=== PATIENT | male | born 1950 | race Caucasian/White ===

== ENCOUNTER 2016-06-21 06:18 | Inpatient (IN) | payer MEDICARE, OTHER ==
[2016-06-21] VITALS (39 sets, daily range): BP systolic 84–152; BP diastolic 45–96
[~2016-06-21] VITALS: Ht 195.6 cm; Wt 128.9 kg
[~2016-06-21 06:18] MED LIST: CARV12.544; LISI10TA6
[2016-06-21] MEDS ORDERED: SODIUM CHLORIDE 0.9% 1,000 ML IV ONE (06:35)
[2016-06-21] MEDS ORDERED: AMIODARONE HCL (50 MG/ ML) 3 ML VIAL IV ONE (06:37)
[2016-06-21] MEDS ORDERED: AMIODARONE HCL 150 MG in D5W 5% 100 ML IV ONE (06:45)
[2016-06-21] MEDS ORDERED: MIDAZOLAM HCL 5 MG/ML-1ML VIAL IV ONE (06:45)
[2016-06-21] MEDS ORDERED: AMIODARONE HCL 900 MG in DEXTROSE 500 ML IV SCH (06:49)
[2016-06-21 07:37] LABS: Hemoglobin 15.7 g/dL (13.5-17.5); SUSPECT VIEW TRANSMISSION
[2016-06-21 07:39] LABS: Hematocrit 47.3 % (41.0-53.0); Mean Corpuscular Hemoglobin 32.5 pg (28.0-32.0); Mean Corpuscular Hgb Conc. 33.3 g/dL (32.0-36.0); Mean Corpuscular Volume 97.5 fL (80.0-100.0); Mean Platelet Volume 8.4 fL (7.4-10.4); Platelet Count (auto) 208 10^3/uL (140-450); Red Cell Distribution Width 13.5 % (11.6-16.0); White Blood Cell 22.3 10^3/uL (4.4-10.8)
[2016-06-21 07:58] LABS: Albumin 3.6 g/dL (3.4-5.0); BUN/Creatinine Ratio 16.8; Calcium 9.2 mg/dL (8.5-10.1); Magnesium 2.5 mg/dL (1.6-2.6); Potassium 5.4 mmol/L (3.5-5.1)
[2016-06-21 07:59] LABS: Metamyelocytes % 0; Myelocytes % 0; Promyelocytes % 0; Reactive Lymphocytes 0
[2016-06-21 08:01] LABS: Platelet Estimate Adequate
[2016-06-21 08:02] LABS: Giant Platelets Few
[2016-06-21 08:10] LABS: Partial Thromboplastin Time 35.6 sec (22.64-33.71)
[2016-06-21 08:11] LABS: INR 3.76 (0.9-1.15); Prothrombin Time 40.6 sec (9.37-12.3)
[2016-06-21 08:14] LABS: Bilirubin, Total 1.3 mg/dL (0.2-1.0); Total Protein 7.6 g/dL (6.4-8.2)
[2016-06-21 08:28] LABS: B-Type Natriuretic Peptide 1177.37 pg/mL (0-100); Temperature: 22.9 C (20.0-25.0)
[2016-06-21] MEDS ORDERED: SODIUM CHLORIDE 0.9% 1,000 ML IV SCH ×3 (08:53→10:35)
[2016-06-21] MEDS ORDERED: LORazepam 0.5 MG TAB PO PRN (09:00)
[2016-06-21] MEDS ORDERED: MORPHINE SULF INJ 2 MG/ML SYRINGE 1ML IV PRN (09:00)
[2016-06-21] MEDS ORDERED: NITROGLYCERIN 0.4 MG SL TAB SL PRN (09:00)
[2016-06-21] MEDS ORDERED: PROCHLORPERAZINE EDISYLATE 5 MG/ML 2ML VIAL IV PRN (09:00)
[2016-06-21] MEDS ORDERED: THIAMINE HCL 100 MG/ML 2ML VIAL IV ONE (09:00)
[2016-06-21] MEDS ORDERED: cefTRIAXone 1GM/50ML D5W 50 ML IV ONE (09:30)
[2016-06-21] MEDS ORDERED: ALBUTEROL SULF 2.5 MG/0.5ML(0.5%) NEB SOLN NEB PRN (09:30)
[2016-06-21 10:05] LABS: Urine Bilirubin Negative (Negative); Urine Color Yellow (Yellow); Urine Glucose Normal (Normal); Urine Hyaline Cast MANY /lpf (0 - 2); Urine Ketone Negative (Negative); Urine Mucus FEW (None Seen); Urine Nitrite Negative (Negative); Urine RBC 3 /hpf (0 - 3); Urine Squamous Epithelial Cell FEW /hpf (<5)
[2016-06-21 10:14] LABS: Urine Blood 2+ /uL (Negative)
[2016-06-21] MEDS: methylPREDNISolone SOD SUCC 40 MG/ML VL IV SCH ×2 (10:16→23:48)
[2016-06-21] MEDS: ASPirin 81 mg TAB PO SCH (10:16)
[2016-06-21] MEDS: CARVEDILOL 12.5 MG TAB PO SCH ×2 (10:16→23:48)
[2016-06-21] MEDS: FAMOTIDINE 20 MG TAB PO SCH ×2 (10:17→23:48)
[2016-06-21] MEDS: NITROGLYCERIN 0.2MG/HR TOPICAL PATCH TD SCH (10:17)
[2016-06-21 10:20] LABS: Lactic Acid w/Reflex 7.7 mmol/L (0.4-2.0)
[2016-06-21 10:24] LABS: REFLEX LACTIC ACID YES OR NO YES
[2016-06-21] MEDS: chlordiazePOXIDE HCL 5 MG CAP PO SCH ×3 (13:00→23:48)
[2016-06-21] MEDS ORDERED: TRAM50TA2 PO (13:42)
[2016-06-21] MEDS ORDERED: WARF5TAB71 PO (13:42)
[2016-06-21] MEDS ORDERED: DIGO0.1262 PO (13:42)
[2016-06-21] MEDS ORDERED: FUROSEMIDE 20 MG/2 ML VIAL IV ONE (13:45)
[2016-06-21] MEDS: PROPOFOL 100 ML IV SCH (14:20)
[2016-06-21] MEDS: fentaNYL Drip 2500mCg/250mlNS 250 ML IV SCH (14:20)
[2016-06-21] MEDS: MIDAZOLAM DRIP 100 mg/100mL NS 100 ML IV SCH (14:20)
[2016-06-21] MEDS ORDERED: ROCURONIUM 10MG/ML 10ML VIAL IV ONE (14:34)
[2016-06-21] MEDS ORDERED: ETOMIDATE (2MG/ML) 20ML VIAL IV ONE (14:35)
[2016-06-21] MEDS ORDERED: SUCCINYLCHOLINE CHLORIDE 20 MG/ML 10ML VIAL IV ONE (14:35)
[2016-06-21] MEDS: LORazepam 2MG/ML-1ML VIAL IV PRN (14:37)
[2016-06-21] MEDS ORDERED: fentaNYL Drip 2500mCg/250mlNS 250 ML IV ONE (14:45)
[2016-06-21] MEDS ORDERED: PROPOFOL 100 ML IV ONE (14:46)
[2016-06-21] MEDS ORDERED: MIDAZOLAM DRIP 100 mg/100mL NS 100 ML IV ONE (14:51)
[2016-06-21] MEDS ORDERED: HEPARIN DRIP/D5W 100UNITS/ML 250 ML IV SCH ×2 (17:46→21:54)
[2016-06-21] MEDS: AMIODARONE HCL 900 MG in DEXTROSE 500 ML IV SCH (19:00)
[2016-06-22] VITALS (97 sets, daily range): BP systolic 90–147; BP diastolic 40–85
[2016-06-22] MEDS ORDERED: AMIODARONE HCL (50 MG/ ML) 3 ML VIAL IV ONE (01:23)
[2016-06-22] MEDS ORDERED: AMIODARONE HCL 900 MG IV ONE (01:23)
[2016-06-22] MEDS: AMIODARONE HCL 900 MG in DEXTROSE 500 ML IV SCH (01:38)
[2016-06-22 03:47] LABS: Basophils # (auto) 0 uL; Basophils % (auto) 0.1 % (0.0-2.0); Eosinophils # (auto) 0 uL; Hematocrit 40.9 % (41.0-53.0); Hemoglobin 13.8 g/dL (13.5-17.5); Lymphocytes # (auto) 0.6 uL; Lymphocytes % (auto) 5.1 % (10.0-50.0); Mean Corpuscular Hemoglobin 32.3 pg (28.0-32.0); Mean Corpuscular Hgb Conc. 33.6 g/dL (32.0-36.0); Mean Corpuscular Volume 95.9 fL (80.0-100.0); Mean Platelet Volume 8.9 fL (7.4-10.4); Monocytes # (auto) 0.5 uL; Monocytes % (auto) 3.8 % (0.0-12.0); Neutrophils # (auto) 11.4 uL; Platelet Count (auto) 190 10^3/uL (140-450); Red Cell Distribution Width 13.3 % (11.6-16.0); White Blood Cell 12.5 10^3/uL (4.4-10.8)
[2016-06-22 03:55] LABS: Partial Thromboplastin Time 31.1 sec (22.64-33.71)
[2016-06-22 04:00] LABS: INR 2.47 (0.9-1.15); Prothrombin Time 26.7 sec (9.37-12.3)
[2016-06-22 04:14] LABS: Temperature: 21.2 C (20.0-25.0)
[2016-06-22 04:15] LABS: Albumin 3.1 g/dL (3.4-5.0); BUN/Creatinine Ratio 28.9; Calcium 8.2 mg/dL (8.5-10.1); Potassium 5.2 mmol/L (3.5-5.1)
[2016-06-22 04:17] LABS: Bilirubin, Total 0.9 mg/dL (0.2-1.0); Total Protein 6.6 g/dL (6.4-8.2)
[2016-06-22] MEDS ORDERED: HEPARIN DRIP/D5W 100UNITS/ML 250 ML IV SCH (05:00)
[2016-06-22] MEDS: chlordiazePOXIDE HCL 5 MG CAP PO SCH ×4 (06:23→21:48)
[2016-06-22] MEDS: THIAMINE HCL 100 MG/ML 2ML VIAL IV SCH (09:42)
[2016-06-22] MEDS: cefTRIAXone 1GM/50ML D5W 50 ML IV SCH (09:42)
[2016-06-22] MEDS: CARVEDILOL 12.5 MG TAB PO SCH ×2 (09:43→21:48)
[2016-06-22] MEDS: methylPREDNISolone SOD SUCC 40 MG/ML VL IV SCH ×2 (09:43→21:47)
[2016-06-22] MEDS: NITROGLYCERIN 0.2MG/HR TOPICAL PATCH TD SCH (09:43)
[2016-06-22] MEDS: ASPirin 81 mg TAB PO SCH (10:00)
[2016-06-22] MEDS: FAMOTIDINE 20 MG TAB PO SCH ×2 (10:00→21:48)
[2016-06-22] MEDS: SODIUM CHLORIDE 0.9% 1,000 ML IV SCH (11:00)
[2016-06-22 11:28] LABS: Basophils # (auto) 0 uL; Basophils % (auto) 0.2 % (0.0-2.0); Eosinophils # (auto) 0 uL; Hematocrit 42.3 % (41.0-53.0); Hemoglobin 13.9 g/dL (13.5-17.5); Lymphocytes # (auto) 0.5 uL; Lymphocytes % (auto) 4.1 % (10.0-50.0); Mean Corpuscular Hgb Conc. 32.8 g/dL (32.0-36.0); Mean Corpuscular Volume 97.4 fL (80.0-100.0); Mean Platelet Volume 8.6 fL (7.4-10.4); Monocytes # (auto) 0.4 uL; Monocytes % (auto) 3.8 % (0.0-12.0); Neutrophils # (auto) 10.8 uL; Neutrophils % (auto) 91.9 % (37.0-80.0); Platelet Count (auto) 195 10^3/uL (140-450); Red Cell Distribution Width 13.5 % (11.6-16.0); White Blood Cell 11.8 10^3/uL (4.4-10.8)
[2016-06-22 11:46] LABS: BUN/Creatinine Ratio 33.3; Bilirubin, Total 0.9 mg/dL (0.2-1.0); Calcium 8.4 mg/dL (8.5-10.1); Potassium 5.2 mmol/L (3.5-5.1); Total Protein 6.5 g/dL (6.4-8.2)
[2016-06-22] MEDS: fentaNYL Drip 2500mCg/250mlNS 250 ML IV SCH (14:53)
[2016-06-22] MEDS: PROPOFOL 100 ML IV SCH (16:27)
[2016-06-22] MEDS ORDERED: WARFARIN SODIUM 2.5 MG TAB PO ONE (17:00)
[2016-06-22] MEDS: MIDAZOLAM DRIP 100 mg/100mL NS 100 ML IV SCH (17:41)
[2016-06-23] VITALS (104 sets, daily range): BP systolic 107–173; BP diastolic 57–117
[2016-06-23] MEDS: SODIUM CHLORIDE 0.9% 1,000 ML IV SCH ×2 (02:00→09:07)
[2016-06-23 04:14] LABS: Basophils # (auto) 0 uL; Basophils % (auto) 0.1 % (0.0-2.0); Eosinophils # (auto) 0 uL; Eosinophils % (auto) 0.1 % (0.0-7.0); Hematocrit 43.3 % (41.0-53.0); Hemoglobin 14.5 g/dL (13.5-17.5); Lymphocytes # (auto) 0.5 uL; Lymphocytes % (auto) 4.3 % (10.0-50.0); Mean Corpuscular Hemoglobin 32.4 pg (28.0-32.0); Mean Corpuscular Hgb Conc. 33.4 g/dL (32.0-36.0); Mean Corpuscular Volume 97.1 fL (80.0-100.0); Mean Platelet Volume 8.5 fL (7.4-10.4); Monocytes # (auto) 0.5 uL; Monocytes % (auto) 4.6 % (0.0-12.0); Neutrophils # (auto) 10.1 uL; Neutrophils % (auto) 90.9 % (37.0-80.0); Platelet Count (auto) 215 10^3/uL (140-450); White Blood Cell 11.1 10^3/uL (4.4-10.8)
[2016-06-23 04:35] LABS: Partial Thromboplastin Time 26.8 sec (22.64-33.71)
[2016-06-23 04:39] LABS: BUN/Creatinine Ratio 36.3; Calcium 8.4 mg/dL (8.5-10.1); Potassium 4.8 mmol/L (3.5-5.1)
[2016-06-23 04:43] LABS: INR 1.57 (0.9-1.15)
[2016-06-23 04:46] LABS: Bilirubin, Total 0.8 mg/dL (0.2-1.0); Total Protein 6.7 g/dL (6.4-8.2)
[2016-06-23] MEDS: chlordiazePOXIDE HCL 5 MG CAP PO SCH ×4 (05:43→21:41)
[2016-06-23] MEDS: AMIODARONE HCL 900 MG in DEXTROSE 500 ML IV SCH ×3 (05:43→21:41)
[2016-06-23] MEDS: ASPirin 81 mg TAB PO SCH (08:57)
[2016-06-23] MEDS: NITROGLYCERIN 0.2MG/HR TOPICAL PATCH TD SCH (08:57)
[2016-06-23] MEDS: cefTRIAXone 1GM/50ML D5W 50 ML IV SCH (08:57)
[2016-06-23] MEDS: methylPREDNISolone SOD SUCC 40 MG/ML VL IV SCH ×2 (08:58→21:39)
[2016-06-23] MEDS: FAMOTIDINE 20 MG TAB PO SCH ×2 (08:58→21:39)
[2016-06-23] MEDS: CARVEDILOL 12.5 MG TAB PO SCH ×2 (08:58→21:39)
[2016-06-23] MEDS: THIAMINE HCL 100 MG/ML 2ML VIAL IV SCH (08:58)
[2016-06-23] MEDS: PROPOFOL 100 ML IV SCH (14:53)
[2016-06-23] MEDS: MIDAZOLAM DRIP 100 mg/100mL NS 100 ML IV SCH (14:53)
[2016-06-23] MEDS: fentaNYL Drip 2500mCg/250mlNS 250 ML IV SCH (14:53)
[2016-06-23] MEDS ORDERED: WARFARIN SODIUM 5 MG TAB PO ONE (17:00)
[2016-06-24] VITALS (80 sets, daily range): BP systolic 110–173; BP diastolic 53–115
[2016-06-24] MEDS: LORazepam 2MG/ML-1ML VIAL IV PRN ×3 (00:27→23:45)
[2016-06-24] MEDS: SODIUM CHLORIDE 0.9% 1,000 ML IV SCH (02:45)
[2016-06-24 03:42] LABS: Basophils # (auto) 0 uL; Basophils % (auto) 0.2 % (0.0-2.0); Eosinophils # (auto) 0 uL; Hematocrit 42.8 % (41.0-53.0); Lymphocytes # (auto) 0.4 uL; Lymphocytes % (auto) 3.8 % (10.0-50.0); Mean Corpuscular Hemoglobin 31.9 pg (28.0-32.0); Mean Corpuscular Hgb Conc. 32.7 g/dL (32.0-36.0); Mean Corpuscular Volume 97.5 fL (80.0-100.0); Mean Platelet Volume 8.1 fL (7.4-10.4); Monocytes # (auto) 0.6 uL; Monocytes % (auto) 6.2 % (0.0-12.0); Neutrophils # (auto) 9.1 uL; Neutrophils % (auto) 89.8 % (37.0-80.0); Platelet Count (auto) 215 10^3/uL (140-450); Red Cell Distribution Width 13.8 % (11.6-16.0); White Blood Cell 10.1 10^3/uL (4.4-10.8)
[2016-06-24 03:56] LABS: Partial Thromboplastin Time 24.8 sec (22.64-33.71)
[2016-06-24 03:58] LABS: BUN/Creatinine Ratio 36.4; Calcium 8.5 mg/dL (8.5-10.1); INR 1.46 (0.9-1.15); Potassium 4.7 mmol/L (3.5-5.1); Prothrombin Time 15.8 sec (9.37-12.3)
[2016-06-24] MEDS: MORPHINE SULF INJ 2 MG/ML SYRINGE 1ML IV PRN ×3 (04:29→22:10)
[2016-06-24] MEDS: chlordiazePOXIDE HCL 5 MG CAP PO SCH ×4 (05:30→21:37)
[2016-06-24] MEDS: methylPREDNISolone SOD SUCC 40 MG/ML VL IV SCH ×2 (08:55→21:33)
[2016-06-24] MEDS: cefTRIAXone 1GM/50ML D5W 50 ML IV SCH (08:55)
[2016-06-24] MEDS: THIAMINE HCL 100 MG/ML 2ML VIAL IV SCH (08:55)
[2016-06-24] MEDS: ASPirin 81 mg TAB PO SCH (08:55)
[2016-06-24] MEDS: CARVEDILOL 12.5 MG TAB PO SCH ×2 (08:56→21:34)
[2016-06-24] MEDS: FAMOTIDINE 20 MG TAB PO SCH ×2 (08:56→21:37)
[2016-06-24] MEDS: NITROGLYCERIN 0.2MG/HR TOPICAL PATCH TD SCH (08:57)
[2016-06-24] MEDS ORDERED: ENALAPRIL MALEATE 2.5 MG TAB PO ONE (11:15)
[2016-06-24] MEDS: ENOXAPARIN SOD 100 MG/1 ML SYRINGE SC SCH ×2 (11:43→21:37)
[2016-06-24] MEDS: DOXYCYCLINE HYC 100MG/250ML 250 ML IV SCH (13:51)
[2016-06-24] MEDS: MIDAZOLAM DRIP 100 mg/100mL NS 100 ML IV SCH (14:53)
[2016-06-24] MEDS: fentaNYL Drip 2500mCg/250mlNS 250 ML IV SCH (14:53)
[2016-06-24] MEDS: PROPOFOL 100 ML IV SCH (14:53)
[2016-06-24] MEDS ORDERED: WARFARIN SODIUM 5 MG TAB PO ONE (17:00)
[2016-06-25] VITALS (63 sets, daily range): BP systolic 88–184; BP diastolic 43–113
[2016-06-25] MEDS: chlordiazePOXIDE HCL 5 MG CAP PO SCH ×3 (00:20→13:00)
[2016-06-25] MEDS: DOXYCYCLINE HYC 100MG/250ML 250 ML IV SCH ×2 (02:24→14:19)
[2016-06-25] MEDS: AMIODARONE HCL 900 MG in DEXTROSE 500 ML IV SCH ×2 (02:47→19:40)
[2016-06-25 03:43] LABS: Basophils # (auto) 0 uL; Basophils % (auto) 0.2 % (0.0-2.0); Eosinophils # (auto) 0 uL; Eosinophils % (auto) 0.1 % (0.0-7.0); Hematocrit 44.6 % (41.0-53.0); Hemoglobin 14.7 g/dL (13.5-17.5); Lymphocytes # (auto) 0.4 uL; Lymphocytes % (auto) 3.6 % (10.0-50.0); Mean Corpuscular Hemoglobin 32.2 pg (28.0-32.0); Mean Corpuscular Volume 97.7 fL (80.0-100.0); Mean Platelet Volume 8.3 fL (7.4-10.4); Monocytes # (auto) 0.5 uL; Monocytes % (auto) 4.8 % (0.0-12.0); Neutrophils # (auto) 9.7 uL; Neutrophils % (auto) 91.3 % (37.0-80.0); Platelet Count (auto) 192 10^3/uL (140-450); Red Cell Distribution Width 13.2 % (11.6-16.0); White Blood Cell 10.6 10^3/uL (4.4-10.8)
[2016-06-25 03:58] LABS: Partial Thromboplastin Time 34.8 sec (22.64-33.71)
[2016-06-25 03:59] LABS: INR 2.23 (0.9-1.15); Prothrombin Time 24.1 sec (9.37-12.3)
[2016-06-25 04:16] LABS: Albumin 2.6 g/dL (3.4-5.0); BUN/Creatinine Ratio 34.4; Bilirubin, Total 1.4 mg/dL (0.2-1.0); Calcium 8.2 mg/dL (8.5-10.1); Magnesium 2.5 mg/dL (1.6-2.6); Potassium 4.3 mmol/L (3.5-5.1); Total Protein 6.4 g/dL (6.4-8.2)
[2016-06-25] MEDS: cefTRIAXone 1GM/50ML D5W 50 ML IV SCH (09:19)
[2016-06-25] MEDS: methylPREDNISolone SOD SUCC 40 MG/ML VL IV SCH (09:50)
[2016-06-25] MEDS: ASPirin 81 mg TAB PO SCH (09:51)
[2016-06-25] MEDS: CARVEDILOL 12.5 MG TAB PO SCH ×2 (09:51→22:00)
[2016-06-25] MEDS: THIAMINE HCL 100 MG/ML 2ML VIAL IV SCH (09:52)
[2016-06-25] MEDS: FAMOTIDINE 20 MG TAB PO SCH (09:52)
[2016-06-25] MEDS: NITROGLYCERIN 0.2MG/HR TOPICAL PATCH TD SCH (09:53)
[2016-06-25] MEDS ORDERED: ENALAPRIL MALEATE 2.5 MG TAB PO SCH (10:00)
[2016-06-25] MEDS ORDERED: FUROSEMIDE 40 MG/4 ML VIAL IV ONE (11:45)
[2016-06-25] MEDS ORDERED: ENALAPRIL MALEATE 2.5 MG TAB PO ONE (11:45)
[2016-06-25] MEDS ORDERED: GABAPENTIN 100 MG CAP PO ONE (15:15)
[2016-06-25] MEDS ORDERED: WARFARIN SODIUM 1 MG TAB PO ONE (17:00)
[2016-06-25] MEDS: MORPHINE SULF INJ 2 MG/ML SYRINGE 1ML IV PRN (20:18)
[2016-06-25] MEDS: LORazepam 2MG/ML-1ML VIAL IV PRN (20:19)
[2016-06-26] VITALS (72 sets, daily range): BP systolic 101–180; BP diastolic 53–112
[2016-06-26] MEDS: methylPREDNISolone SOD SUCC 40 MG/ML VL IV SCH ×3 (00:14→21:28)
[2016-06-26] MEDS: SODIUM CHLORIDE 0.9% 1,000 ML IV SCH ×2 (00:14→10:28)
[2016-06-26] MEDS: FAMOTIDINE 20 MG TAB PO SCH ×3 (00:15→21:47)
[2016-06-26] MEDS: GABAPENTIN 100 MG CAP PO SCH ×4 (00:15→21:31)
[2016-06-26] MEDS: MORPHINE SULF INJ 2 MG/ML SYRINGE 1ML IV PRN ×2 (01:34→23:48)
[2016-06-26] MEDS: LORazepam 2MG/ML-1ML VIAL IV PRN (01:34)
[2016-06-26] MEDS: DOXYCYCLINE HYC 100MG/250ML 250 ML IV SCH ×2 (01:39→13:38)
[2016-06-26 03:53] LABS: Partial Thromboplastin Time 31.4 sec (22.64-33.71)
[2016-06-26 04:04] LABS: INR 2.85 (0.9-1.15); Prothrombin Time 30.8 sec (9.37-12.3)
[2016-06-26 04:06] LABS: Albumin 2.6 g/dL (3.4-5.0); BUN/Creatinine Ratio 35.2; Bilirubin, Total 1.3 mg/dL (0.2-1.0); Calcium 8.4 mg/dL (8.5-10.1); Potassium 4.2 mmol/L (3.5-5.1); Total Protein 6.5 g/dL (6.4-8.2)
[2016-06-26] MEDS: cefTRIAXone 1GM/50ML D5W 50 ML IV SCH (09:35)
[2016-06-26] MEDS: THIAMINE HCL 100 MG/ML 2ML VIAL IV SCH (09:36)
[2016-06-26] MEDS: ASPirin 81 mg TAB PO SCH (09:36)
[2016-06-26] MEDS: CARVEDILOL 12.5 MG TAB PO SCH ×3 (10:00→23:46)
[2016-06-26] MEDS: NITROGLYCERIN 0.2MG/HR TOPICAL PATCH TD SCH (10:00)
[2016-06-26] MEDS ORDERED: ENALAPRIL MALEATE 2.5 MG TAB PO SCH (10:00)
[2016-06-26] MEDS: AMIODARONE HCL 900 MG in DEXTROSE 500 ML IV SCH (10:41)
[2016-06-26] MEDS: SOD CHL 0.45% 1,000 ML IV SCH (13:38)
[2016-06-26] MEDS ORDERED: ENALAPRIL MALEATE 10 MG TAB PO ONE (14:15)
[2016-06-27] VITALS (22 sets, daily range): BP systolic 121–159; BP diastolic 61–151
[2016-06-27] MEDS: AMIODARONE HCL 900 MG in DEXTROSE 500 ML IV SCH ×2 (01:42→14:50)
[2016-06-27] MEDS: DOXYCYCLINE HYC 100MG/250ML 250 ML IV SCH ×2 (02:00→13:58)
[2016-06-27 03:53] LABS: Partial Thromboplastin Time 30.5 sec (22.64-33.71)
[2016-06-27 03:55] LABS: INR 2.92 (0.9-1.15); Prothrombin Time 31.5 sec (9.37-12.3)
[2016-06-27 04:01] LABS: Albumin 2.6 g/dL (3.4-5.0); BUN/Creatinine Ratio 36.3; Bilirubin, Total 1.4 mg/dL (0.2-1.0); Calcium 8.4 mg/dL (8.5-10.1); Potassium 3.9 mmol/L (3.5-5.1); Total Protein 6.5 g/dL (6.4-8.2)
[2016-06-27] MEDS: GABAPENTIN 100 MG CAP PO SCH ×3 (06:10→21:40)
[2016-06-27] MEDS: SOD CHL 0.45% 1,000 ML IV SCH (06:30)
[2016-06-27] MEDS: ASPirin 81 mg TAB PO SCH (10:07)
[2016-06-27] MEDS: FAMOTIDINE 20 MG TAB PO SCH ×2 (10:07→21:40)
[2016-06-27] MEDS: cefTRIAXone 1GM/50ML D5W 50 ML IV SCH (10:08)
[2016-06-27] MEDS: ENALAPRIL MALEATE 10 MG TAB PO SCH (10:08)
[2016-06-27] MEDS: THIAMINE HCL 100 MG/ML 2ML VIAL IV SCH (10:23)
[2016-06-27] MEDS: NITROGLYCERIN 0.2MG/HR TOPICAL PATCH TD SCH (10:23)
[2016-06-27] MEDS: methylPREDNISolone SOD SUCC 40 MG/ML VL IV SCH ×2 (10:23→21:40)
[2016-06-27] MEDS: CARVEDILOL 12.5 MG TAB PO SCH (21:39)
[2016-06-27] MEDS: LORazepam 2MG/ML-1ML VIAL IV PRN (22:22)
[2016-06-28] VITALS: BP 93/62
[2016-06-28] MEDS: LORazepam 2MG/ML-1ML VIAL IV PRN ×2 (01:55→21:38)
[2016-06-28] MEDS: DOXYCYCLINE HYC 100MG/250ML 250 ML IV SCH ×2 (02:05→14:28)
[2016-06-28 03:59] VITALS: BP 129/69
[2016-06-28] MEDS: GABAPENTIN 100 MG CAP PO SCH ×2 (06:00→14:28)
[2016-06-28 06:14] LABS: Basophils # (auto) 0 uL; Eosinophils # (auto) 0 uL; Hematocrit 47.5 % (41.0-53.0); Hemoglobin 16.1 g/dL (13.5-17.5); Lymphocytes # (auto) 0.3 uL; Lymphocytes % (auto) 1.9 % (10.0-50.0); Mean Corpuscular Hemoglobin 32.6 pg (28.0-32.0); Mean Corpuscular Hgb Conc. 33.8 g/dL (32.0-36.0); Mean Corpuscular Volume 96.4 fL (80.0-100.0); Mean Platelet Volume 8.4 fL (7.4-10.4); Monocytes # (auto) 0.6 uL; Monocytes % (auto) 3.4 % (0.0-12.0); Neutrophils # (auto) 16.2 uL; Neutrophils % (auto) 94.7 % (37.0-80.0); Platelet Count (auto) 180 10^3/uL (140-450); Red Cell Distribution Width 13.1 % (11.6-16.0); White Blood Cell 17.1 10^3/uL (4.4-10.8)
[2016-06-28 06:25] LABS: Calcium 8.6 mg/dL (8.5-10.1); Potassium 4.1 mmol/L (3.5-5.1)
[2016-06-28 06:36] LABS: INR 3.03 (0.9-1.15); Prothrombin Time 32.7 sec (9.37-12.3)
[2016-06-28 06:39] LABS: BUN/Creatinine Ratio 39.5
[2016-06-28] MEDS: AMIODARONE HCL 900 MG in DEXTROSE 500 ML IV SCH ×2 (07:44→21:38)
[2016-06-28 07:48] VITALS: BP 149/92
[2016-06-28] MEDS: cefTRIAXone 1GM/50ML D5W 50 ML IV SCH (09:00)
[2016-06-28] MEDS: CARVEDILOL 12.5 MG TAB PO SCH ×2 (10:00→21:37)
[2016-06-28] MEDS: ENALAPRIL MALEATE 10 MG TAB PO SCH (10:00)
[2016-06-28] MEDS: methylPREDNISolone SOD SUCC 40 MG/ML VL IV SCH ×2 (11:31→21:36)
[2016-06-28] MEDS: THIAMINE HCL 100 MG/ML 2ML VIAL IV SCH (11:31)
[2016-06-28 12:00] VITALS: BP 101/55
[2016-06-28] MEDS ORDERED: MORPHINE SULF INJ 2 MG/ML SYRINGE 1ML IV PRN (13:00)
[2016-06-28] MEDS: FAMOTIDINE 20 MG TAB PO SCH ×2 (14:27→21:37)
[2016-06-28] MEDS: NITROGLYCERIN 0.2MG/HR TOPICAL PATCH TD SCH (14:27)
[2016-06-28] MEDS: ASPirin 81 mg TAB PO SCH (14:27)
[2016-06-28] MEDS ORDERED: LORazepam 0.5 MG TAB PO PRN (15:00)
[2016-06-28 16:00] VITALS: BP 132/55
[2016-06-28] MEDS ORDERED: PHYTONADIONE (VIT K)10 MG/ML 1ML VIAL IV ONE ×2 (18:00→18:30)
[2016-06-28 20:00] VITALS: BP 104/61
[2016-06-28 20:39] LABS: INR 2.29 (0.9-1.15); Prothrombin Time 24.7 sec (9.37-12.3)
[2016-06-28] MEDS: GABAPENTIN 300 MG CAP PO SCH (21:37)
[2016-06-29] VITALS (7 sets, daily range): BP systolic 90–129; BP diastolic 53–79
[2016-06-29] MEDS: DOXYCYCLINE HYC 100MG/250ML 250 ML IV SCH ×2 (01:03→14:00)
[2016-06-29] MEDS: GABAPENTIN 300 MG CAP PO SCH ×3 (06:18→21:52)
[2016-06-29 06:44] LABS: Basophils # (auto) 0.1 uL; Basophils % (auto) 0.3 % (0.0-2.0); Eosinophils # (auto) 0 uL; Hemoglobin 14.9 g/dL (13.5-17.5); Lymphocytes # (auto) 0.5 uL; Lymphocytes % (auto) 2.5 % (10.0-50.0); Mean Corpuscular Hemoglobin 32.2 pg (28.0-32.0); Mean Corpuscular Hgb Conc. 33.1 g/dL (32.0-36.0); Mean Corpuscular Volume 97.1 fL (80.0-100.0); Mean Platelet Volume 8.4 fL (7.4-10.4); Monocytes # (auto) 1.2 uL; Monocytes % (auto) 5.6 % (0.0-12.0); Neutrophils # (auto) 18.9 uL; Neutrophils % (auto) 91.6 % (37.0-80.0); Platelet Count (auto) 178 10^3/uL (140-450); Red Cell Distribution Width 12.8 % (11.6-16.0); White Blood Cell 20.6 10^3/uL (4.4-10.8)
[2016-06-29 07:01] LABS: INR 1.52 (0.9-1.15); Prothrombin Time 16.4 sec (9.37-12.3)
[2016-06-29 07:41] LABS: Albumin 2.2 g/dL (3.4-5.0); Bilirubin, Direct 0.8 mg/dL (0-0.2); Bilirubin, Total 1.8 mg/dL (0.2-1.0); Total Protein 5.5 g/dL (6.4-8.2)
[2016-06-29] MEDS: cefTRIAXone 1GM/50ML D5W 50 ML IV SCH (09:33)
[2016-06-29] MEDS: ASPirin 81 mg TAB PO SCH (10:21)
[2016-06-29] MEDS: FAMOTIDINE 20 MG TAB PO SCH ×2 (10:21→21:52)
[2016-06-29] MEDS: CARVEDILOL 12.5 MG TAB PO SCH ×2 (10:23→21:52)
[2016-06-29] MEDS: ENALAPRIL MALEATE 10 MG TAB PO SCH (10:23)
[2016-06-29] MEDS: NITROGLYCERIN 0.2MG/HR TOPICAL PATCH TD SCH (10:24)
[2016-06-29] MEDS: THIAMINE HCL 100 MG/ML 2ML VIAL IV SCH (10:24)
[2016-06-29] MEDS: methylPREDNISolone SOD SUCC 40 MG/ML VL IV SCH (10:24)
[2016-06-29] MEDS ORDERED: HYDROcodone-ACET 5/325MG TAB PO PRN (12:00)
[2016-06-29] MEDS: AMIODARONE HCL 900 MG in DEXTROSE 500 ML IV SCH (13:46)
[2016-06-29] MEDS: traMADol HCL 50 MG TAB PO PRN (18:19)
[2016-06-29] MEDS: LORazepam 2MG/ML-1ML VIAL IV PRN (21:54)
[2016-06-30] VITALS (11 sets, daily range): BP systolic 95–126; BP diastolic 61–90
[2016-06-30] MEDS: DOXYCYCLINE HYC 100MG/250ML 250 ML IV SCH ×2 (01:52→13:26)
[2016-06-30] MEDS: AMIODARONE HCL 900 MG in DEXTROSE 500 ML IV SCH (05:00)
[2016-06-30 05:56] LABS: Basophils # (auto) 0 uL; DEFINITIVE VIEW TRANSMISSION; Eosinophils # (auto) 0.1 uL; Eosinophils % (auto) 0.4 % (0.0-7.0); Hemoglobin 14.9 g/dL (13.5-17.5); Lymphocytes # (auto) 1.6 uL; Lymphocytes % (auto) 8.2 % (10.0-50.0); Mean Corpuscular Hemoglobin 32.3 pg (28.0-32.0); Mean Corpuscular Hgb Conc. 33.2 g/dL (32.0-36.0); Mean Corpuscular Volume 97.2 fL (80.0-100.0); Mean Platelet Volume 9.1 fL (7.4-10.4); Monocytes # (auto) 1.7 uL; Monocytes % (auto) 8.9 % (0.0-12.0); Neutrophils # (auto) 15.7 uL; Neutrophils % (auto) 82.5 % (37.0-80.0); Platelet Count (auto) 186 10^3/uL (140-450); Red Cell Distribution Width 13.1 % (11.6-16.0)
[2016-06-30] MEDS: GABAPENTIN 300 MG CAP PO SCH ×3 (06:00→22:07)
[2016-06-30 06:02] LABS: INR 1.23 (0.9-1.15); Prothrombin Time 13.3 sec (9.37-12.3)
[2016-06-30] MEDS: cefTRIAXone 1GM/50ML D5W 50 ML IV SCH (08:42)
[2016-06-30] MEDS: ASPirin 81 mg TAB PO SCH (09:44)
[2016-06-30] MEDS: FAMOTIDINE 20 MG TAB PO SCH ×2 (09:45→22:07)
[2016-06-30] MEDS: predniSONE 20 MG TAB PO SCH (09:45)
[2016-06-30] MEDS: ENALAPRIL MALEATE 10 MG TAB PO SCH (10:00)
[2016-06-30] MEDS: CARVEDILOL 12.5 MG TAB PO SCH ×2 (10:00→22:08)
[2016-06-30] MEDS: NITROGLYCERIN 0.2MG/HR TOPICAL PATCH TD SCH (10:02)
[2016-06-30] MEDS: THIAMINE HCL 100 MG/ML 2ML VIAL IV SCH (10:02)
[2016-06-30] MEDS ORDERED: IOHEXOL 350 MG/ML 100ML IJ ONE (10:53)
[2016-06-30] MEDS ORDERED: LIDOCAINE 2%HCL (LOCAL ANESTH.) INJ 20ML MDV ONE (10:53)
[2016-06-30] MEDS ORDERED: ANGIOMAX 250 MG VIAL IV ONE (12:04)
[2016-06-30] MEDS ORDERED: MIDAZOLAM HCL 1MG/1ML-2 ML VIAL ONE (12:05)
[2016-06-30] MEDS ORDERED: SODIUM CHL 0.9% 0 ML ONE (12:05)
[2016-06-30] MEDS ORDERED: fentaNYL CITRATE 100 MCG/2 ML VL ONE (12:05)
[2016-07-01] VITALS (7 sets, daily range): BP systolic 87–126; BP diastolic 47–71
[2016-07-01] MEDS: DOXYCYCLINE HYC 100MG/250ML 250 ML IV SCH (01:27)
[2016-07-01 06:02] LABS: Basophils # (auto) 0 uL; DEFINITIVE VIEW TRANSMISSION; Eosinophils # (auto) 0.2 uL; Eosinophils % (auto) 1.3 % (0.0-7.0); Hematocrit 44.5 % (41.0-53.0); Hemoglobin 14.6 g/dL (13.5-17.5); Lymphocytes # (auto) 1.5 uL; Lymphocytes % (auto) 11.9 % (10.0-50.0); Mean Corpuscular Hemoglobin 31.8 pg (28.0-32.0); Mean Corpuscular Hgb Conc. 32.7 g/dL (32.0-36.0); Mean Corpuscular Volume 97.2 fL (80.0-100.0); Mean Platelet Volume 8.8 fL (7.4-10.4); Monocytes # (auto) 1.6 uL; Monocytes % (auto) 12.8 % (0.0-12.0); Neutrophils # (auto) 9.3 uL; Platelet Count (auto) 201 10^3/uL (140-450); Red Cell Distribution Width 13.1 % (11.6-16.0); White Blood Cell 12.6 10^3/uL (4.4-10.8)
[2016-07-01] MEDS: GABAPENTIN 300 MG CAP PO SCH ×3 (06:05→21:47)
[2016-07-01 06:24] LABS: BUN/Creatinine Ratio 32.8; Bilirubin, Total 1.2 mg/dL (0.2-1.0); Magnesium 2.2 mg/dL (1.6-2.6); Potassium 3.9 mmol/L (3.5-5.1); Total Protein 5.2 g/dL (6.4-8.2)
[2016-07-01] MEDS: THIAMINE HCL 100 MG/ML 2ML VIAL IV SCH (09:41)
[2016-07-01] MEDS: predniSONE 20 MG TAB PO SCH (09:41)
[2016-07-01] MEDS: FAMOTIDINE 20 MG TAB PO SCH ×2 (09:41→21:47)
[2016-07-01] MEDS: cefTRIAXone 1GM/50ML D5W 50 ML IV SCH (09:41)
[2016-07-01] MEDS: ASPirin 81 mg TAB PO SCH (09:41)
[2016-07-01] MEDS: ENALAPRIL MALEATE 10 MG TAB PO SCH (09:50)
[2016-07-01] MEDS: CARVEDILOL 12.5 MG TAB PO SCH ×2 (09:51→21:47)
[2016-07-01] MEDS: NITROGLYCERIN 0.2MG/HR TOPICAL PATCH TD SCH (09:52)
[2016-07-01] MEDS: DOXYCYCLINE 100 MG TAB/CAP PO SCH ×2 (10:47→21:46)
[2016-07-01] MEDS ORDERED: IOHEXOL 300 MG/ML 100ML BOTTLE IJ ONE (12:06)
[2016-07-01] MEDS: traMADol HCL 50 MG TAB PO PRN ×2 (17:25→23:29)
[2016-07-02 05:00] VITALS: BP 116/69
[2016-07-02] MEDS: GABAPENTIN 300 MG CAP PO SCH ×3 (05:30→22:10)
[2016-07-02] MEDS: traMADol HCL 50 MG TAB PO PRN ×3 (05:30→18:32)
[2016-07-02 06:09] LABS: Basophils # (auto) 0 uL; Basophils % (auto) 0.1 % (0.0-2.0); Eosinophils # (auto) 0.1 uL; Hematocrit 45.6 % (41.0-53.0); Hemoglobin 14.8 g/dL (13.5-17.5); Lymphocytes # (auto) 1.9 uL; Lymphocytes % (auto) 13.2 % (10.0-50.0); Mean Corpuscular Hemoglobin 31.8 pg (28.0-32.0); Mean Corpuscular Hgb Conc. 32.5 g/dL (32.0-36.0); Mean Corpuscular Volume 97.9 fL (80.0-100.0); Mean Platelet Volume 9.2 fL (7.4-10.4); Monocytes # (auto) 1.6 uL; Monocytes % (auto) 11.2 % (0.0-12.0); Neutrophils # (auto) 10.6 uL; Neutrophils % (auto) 74.5 % (37.0-80.0); Platelet Count (auto) 236 10^3/uL (140-450); White Blood Cell 14.2 10^3/uL (4.4-10.8)
[2016-07-02 09:00] VITALS: BP 125/57
[2016-07-02] MEDS: predniSONE 20 MG TAB PO SCH (09:32)
[2016-07-02] MEDS: CARVEDILOL 12.5 MG TAB PO SCH ×2 (09:32→22:11)
[2016-07-02] MEDS: ASPirin 81 mg TAB PO SCH (09:32)
[2016-07-02] MEDS: DOXYCYCLINE 100 MG TAB/CAP PO SCH ×2 (09:32→22:11)
[2016-07-02] MEDS: FAMOTIDINE 20 MG TAB PO SCH ×2 (09:33→22:10)
[2016-07-02] MEDS: ENALAPRIL MALEATE 10 MG TAB PO SCH (09:33)
[2016-07-02] MEDS: THIAMINE HCL 100 MG/ML 2ML VIAL IV SCH (09:33)
[2016-07-02] MEDS ORDERED: [UNRECOGNIZED DRUG - OTHER] TOP SCH (12:00)
[2016-07-02 13:00] VITALS: BP 90/58
[2016-07-02] MEDS: HYDROCORTONE 1% TOPICAL CREAM 30 GM TUBE TOP SCH ×2 (14:35→22:11)
[2016-07-02 16:41] VITALS: BP 115/64
[2016-07-02 20:42] VITALS: BP 115/64
[2016-07-02 21:23] VITALS: BP 106/57
[2016-07-02] MEDS ORDERED: PNEUMOCOCCAL VACC POLYS 25 MCG/0.5 ML VIAL IM ONE (23:00)
[2016-07-03] MEDS: traMADol HCL 50 MG TAB PO PRN ×2 (04:54→14:34)
[2016-07-03] MEDS: GABAPENTIN 300 MG CAP PO SCH ×2 (04:54→14:00)
[2016-07-03] MEDS ORDERED: predniSONE 20 MG TAB PO SCH (10:00)
[2016-07-03] MEDS: DOXYCYCLINE 100 MG TAB/CAP PO SCH (10:34)
[2016-07-03] MEDS: ASPirin 81 mg TAB PO SCH (10:34)
[2016-07-03] MEDS: THIAMINE HCL 100 MG/ML 2ML VIAL IV SCH (10:34)
[2016-07-03] MEDS: FAMOTIDINE 20 MG TAB PO SCH (10:35)
[2016-07-03] MEDS: ENALAPRIL MALEATE 10 MG TAB PO SCH (10:35)
[2016-07-03] MEDS: HYDROCORTONE 1% TOPICAL CREAM 30 GM TUBE TOP SCH (10:36)
[2016-07-03] MEDS: CARVEDILOL 12.5 MG TAB PO SCH (10:36)
[2016-07-03] MEDS ORDERED: ENA10T PO (13:35)
[2016-07-03] MEDS ORDERED: APIX5TAB PO (13:35)
[2016-07-03] MEDS ORDERED: CAR125T PO (13:35)
[2016-07-03] MEDS ORDERED: ASPI81CH43 PO (13:35)
[2016-07-03] MEDS ORDERED: SACC250C PO (13:37)
[2016-07-03] MEDS ORDERED: DOX100T PO (13:37)
[2016-07-03] MEDS ORDERED: ASPirin 81 mg TAB PO ONE (13:45)
[2016-07-03] MEDS ORDERED: APIXABAN 5 MG TAB PO ONE (13:45)
[2016-07-03] MEDS ORDERED: ALBUTEROL SULF 2.5 MG/0.5ML(0.5%) NEB SOLN NEB PRN (13:45)
[2016-07-03] MEDS ORDERED: ATOR10TA PO (13:53)
[2016-07-03] MEDS ORDERED: ATORVASTATIN 20 MG TAB PO SCH ×2 (22:00)
[2016-07-03] MEDS ORDERED: FAMOTIDINE 20 MG TAB PO SCH (22:00)
[2016-07-03] MEDS ORDERED: APIXABAN 5 MG TAB PO SCH (22:00)
[2016-07-04] MEDS ORDERED: ASPirin 81 mg TAB PO SCH (10:00)
[2016-07-04] MEDS ORDERED: THIAMINE HCL 100 MG TAB PO SCH (10:00)
== END 2016-07-03 19:19 | DRG 870 ==
LOC: ER 06:18 → TELE 06:19 → ICU WEST 12:14 → DOU IN ICU 06-27 16:40 → TELE-WESTW 07-01 00:44
PROVIDERS: ADMIT Internal Medicine; ATTEND Internal Medicine
PROC: 5A1955Z Respiratory Ventilation, Greater than 96 Consecutive Hours (ICD-10-PCS; principal; 2016-06-21)
PROC: 0BH17EZ Insertion of Endotracheal Airway into Trachea, Via Natural or Artificial Opening (ICD-10-PCS; 2016-06-21)
PROC: 02HV33Z Insertion of Infusion Device into Superior Vena Cava, Percutaneous Approach (ICD-10-PCS; 2016-06-21)
PROC: B548ZZA Ultrasonography of Superior Vena Cava, Guidance (ICD-10-PCS; 2016-06-21)
PROC: 5A2204Z Restoration of Cardiac Rhythm, Single (ICD-10-PCS; 2016-06-21)
PROC: 5A2204Z Restoration of Cardiac Rhythm, Single (ICD-10-PCS; 2016-06-21)
PROC: 4A023N7 Measurement of Cardiac Sampling and Pressure, Left Heart, Percutaneous Approach (ICD-10-PCS; 2016-06-30)
PROC: B2111ZZ Fluoroscopy of Multiple Coronary Arteries using Low Osmolar Contrast (ICD-10-PCS; 2016-06-30)
PROC: 0GBG3ZX Excision of Left Thyroid Gland Lobe, Percutaneous Approach, Diagnostic (ICD-10-PCS; 2016-07-03)
DX: A41.9 Sepsis, unspecified organism (principal); I21.4 Non-ST elevation (NSTEMI) myocardial infarction; I50.43 Acute on chronic combined systolic (congestive) and diastolic (congestive) heart failure; J96.01 Acute respiratory failure with hypoxia; N17.0 Acute kidney failure with tubular necrosis; J69.0 Pneumonitis due to inhalation of food and vomit; K76.7 Hepatorenal syndrome; I47.2 Ventricular tachycardia; E87.1 Hypo-osmolality and hyponatremia; E44.1 Mild protein-calorie malnutrition; I47.1 Supraventricular tachycardia; I48.1 Persistent atrial fibrillation; M62.82 Rhabdomyolysis; D68.9 Coagulation defect, unspecified; I13.0 Hypertensive heart and chronic kidney disease with heart failure and stage 1 through stage 4 chronic kidney disease, or unspecified chronic kidney disease; I42.6 Alcoholic cardiomyopathy; I48.92 Unspecified atrial flutter; E03.9 Hypothyroidism, unspecified; E66.01 Morbid (severe) obesity due to excess calories; Z91.19 Patient's noncompliance with other medical treatment and regimen; F10.20 Alcohol dependence, uncomplicated; Z68.32 Body mass index [BMI] 32.0-32.9, adult; E87.5 Hyperkalemia; K70.9 Alcoholic liver disease, unspecified; L40.9 Psoriasis, unspecified; N18.9 Chronic kidney disease, unspecified; J02.9 Acute pharyngitis, unspecified; I25.5 Ischemic cardiomyopathy; E05.20 Thyrotoxicosis with toxic multinodular goiter without thyrotoxic crisis or storm; I48.0 Paroxysmal atrial fibrillation; T38.0X5A Adverse effect of glucocorticoids and synthetic analogues, initial encounter; Z79.01 Long term (current) use of anticoagulants; Z80.9 Family history of malignant neoplasm, unspecified; Z82.49 Family history of ischemic heart disease and other diseases of the circulatory system; Z86.711 Personal history of pulmonary embolism; Z91.14 Patient's other noncompliance with medication regimen; Z28.21 Immunization not carried out because of patient refusal
CPT/HCPCS: 36415; 36600; 51702; 70450; 70491; 71010; 76536; 76700; 76937; 76942; 78582; 80048; 80053; 80061; 80076; 80162; 81001; 82140; 82150; 82550; 82570; 82805; 83036; 83605; 83690; 83735; 83880; 84300; 84439; 84443; 84481; 84484; 85007; 85025; 85027; 85379; 85610; 85652; 85730; 86141; 87040; 87070; 87081; 87086; 87205; 92610; 92960; 93005; 93306; 93970; 94002; 94003; 94640; 96365; 96367; 96375; 97001; 97116; 97530; 99152; 99291; A4565; G0434; J0330; J0696; J2250; J2704; J3010; J3430; J3490; J7060

== ENCOUNTER 2019-07-02 15:01 | Inpatient (IN) | payer MEDICARE ==
[~2019-07-02] VITALS: Ht 185.4 cm; Wt 138.0 kg
[~2019-07-02 15:01] MED LIST changes: +AMIO200T4 PO; +APIX5TAB PO; +ASPI81CH43 PO; +ATOR10TA PO; +CAR125T PO; -CARV12.544; +DOX100T PO; +ENAL10TA12 PO; +GAB100C PO; +HYDR-4833 PO; -LISI10TA6
[2019-07-02] MEDS ORDERED: SODIUM CHLORIDE 0.9% 1,000 ML IVB ONE (15:14)
[2019-07-02 16:22] LABS: Basophils # (auto) 0 10 ^3/uL (0-0.2); Basophils % (auto) 0.3 % (0.0-2.0); Eosinophils # (auto) 0.1 10 ^3/uL (0-0.8); Monocytes # (auto) 0.6 10 ^3/uL (0-1.3); Neutrophils # (auto) 4.3 10 ^3/uL (1.6-8.6); Nucleated Red Blood Cells % 0.1 %; White Blood Cell 6.1 10^3/uL (4.4-10.8)
[2019-07-02 16:24] LABS: Eosinophils % (auto) 0.8 % (0.0-7.0); Hematocrit 49.9 % (41.0-53.0); Lymphocytes # (auto) 1.2 10 ^3/uL (0.4-5.4); Lymphocytes % (auto) 19.2 % (10.0-50.0); Mean Corpuscular Hemoglobin 36.8 pg (28.0-32.0); Mean Corpuscular Hgb Conc. 34.1 g/dL (32.0-36.0); Mean Corpuscular Volume 107.8 fL (80.0-100.0); Monocytes % (auto) 9.8 % (0.0-12.0); Neutrophils % (auto) 69.9 % (37.0-80.0); Platelet Count (auto) 187 10^3/uL (140-450); Red Blood Cells 4.63 10^6/uL (4.5-5.90); Red Cell Distribution Width 14.3 % (11.8-14.3)
[2019-07-02 16:38] LABS: Albumin 3.5 g/dL (3.4-5.0); BUN/Creatinine Ratio 6.7; INR 1.18 (0.9-1.15); Magnesium 2.8 mg/dL (1.6-2.6); Partial Thromboplastin Time 29.1 sec (23.64-32.05); Potassium 4.3 mmol/L (3.5-5.1)
[2019-07-02 16:43] LABS: Bilirubin, Total 1.2 mg/dL (0.2-1.0); Total Protein 7.7 g/dL (6.4-8.2)
[2019-07-02] MEDS ORDERED: NITROGLYCERIN 0.4 MG SL TAB SL PRN (17:15)
[2019-07-02] MEDS ORDERED: MORPHINE SULF INJ 2 MG/ML SYRINGE 1ML IV PRN ×2 (17:15)
[2019-07-02] MEDS ORDERED: ALUM & MAG HYDROX-SIMETH LIQ(MAALOX) 30 ML PO PRN (17:15)
[2019-07-02] MEDS ORDERED: ONDANSETRON HCL 4 MG/2 ML VIAL IV PRN (17:15)
[2019-07-02] MEDS ORDERED: METOCLOPRAMIDE HCL 5MG/ml INJ 2ml VIAL IV PRN (17:15)
[2019-07-02] MEDS ORDERED: DOCUSATE SOD 100 MG CAP PO PRN (17:15)
[2019-07-02] MEDS: SOD CHL 0.45% 1,000 ML IV SCH (19:11)
--- NOTE | 2019-07-02 21:08 | NUR ---
Telemetry admit from [facility] admitted to Telemetry unit. Patient oriented to RN, unit, room, bed, and unit policies regarding patient care and visiting hours. Patient now on continuous telemetry monitoring, tele box #60. Patient placed on bedside oxygen at 2lpm via NC, weighed by bed scale and encouraged to call if they need something. All questions and concerns addressed, patient verbalized understanding. Bed locked in lowest position and bed rails up x2. Call light within reach.
[2019-07-02] MEDS: LORazepam 0.5 MG TAB PO PRN (22:28)
[2019-07-02 22:35] VITALS: BP 137/98
[2019-07-02] MEDS ORDERED: ENOXAPARIN SOD 60 MG/0.6 ML SYRINGE SC ONE (22:45)
[2019-07-02] MEDS ORDERED: METH10TA6 PO (22:49)
[2019-07-02] MEDS ORDERED: DIGO0.12 PO (22:49)
[2019-07-02] MEDS ORDERED: WARF1TAB36 PO (22:49)
[2019-07-02] MEDS ORDERED: METO25TA5 PO (22:49)
[2019-07-02] MEDS ORDERED: TRAM50TA2 PO (22:49)
[2019-07-02] MEDS ORDERED: CLON0.5T3 PO (22:49)
[2019-07-02] MEDS ORDERED: clonazePAM 0.5 MG TAB PO PRN (23:30)
[2019-07-03] MEDS: TEMAZEPAM 15 MG CAP PO PRN (01:10)
[2019-07-03 01:16] LABS: Urine Bacteria NONE SEEN /hpf (None Seen); Urine Blood Negative /uL (Negative); Urine Mucus FEW (None Seen); Urine Specific Gravity 1.011 (1.001-1.035); Urine WBC 3 /hpf (0 - 3)
--- NOTE | 2019-07-03 01:30 | NUR ---
IV insertion IV access obtained, via clean sterile technique by inserting a 22 gauge catheter in the right hand after 1 attempt. IV secured properly. No trauma to site. Patient tolerated well. Will continue to monitor for changes.
[2019-07-03] MEDS: SOD CHL 0.45% 1,000 ML IV SCH ×3 (03:04→23:13)
[2019-07-03 05:12] VITALS: BP 109/71
[2019-07-03 06:22] LABS: Basophils # (auto) 0 10 ^3/uL (0-0.2); Eosinophils # (auto) 0.1 10 ^3/uL (0-0.8); Hemoglobin 16.3 g/dL (13.5-17.5); Lymphocytes # (auto) 1.1 10 ^3/uL (0.4-5.4); Red Cell Distribution Width 14.1 % (11.8-14.3); White Blood Cell 6.1 10^3/uL (4.4-10.8)
[2019-07-03 06:24] LABS: Basophils % (auto) 0.6 % (0.0-2.0); Eosinophils % (auto) 0.9 % (0.0-7.0); Hematocrit 47.1 % (41.0-53.0); Lymphocytes % (auto) 18.3 % (10.0-50.0); Mean Corpuscular Hemoglobin 37.3 pg (28.0-32.0); Mean Corpuscular Hgb Conc. 34.7 g/dL (32.0-36.0); Mean Corpuscular Volume 107.5 fL (80.0-100.0); Monocytes # (auto) 0.5 10 ^3/uL (0-1.3); Neutrophils # (auto) 4.4 10 ^3/uL (1.6-8.6); Neutrophils % (auto) 72.2 % (37.0-80.0); Nucleated Red Blood Cells % 0.3 %; Platelet Count (auto) 176 10^3/uL (140-450); Red Blood Cells 4.38 10^6/uL (4.5-5.90)
[2019-07-03] MEDS: FUROSEMIDE 20 MG/2 ML VIAL IV SCH ×2 (06:25→18:00)
[2019-07-03 06:33] LABS: Albumin 3.2 g/dL (3.4-5.0); Calcium 8.7 mg/dL (8.5-10.1); Magnesium 2.5 mg/dL (1.6-2.6); Potassium 4.5 mmol/L (3.5-5.1)
[2019-07-03 06:39] LABS: BUN/Creatinine Ratio 6.9; Bilirubin, Total 1.4 mg/dL (0.2-1.0); Phosphorus 2.6 mg/dL (2.5-4.90); Total Protein 6.9 g/dL (6.4-8.2)
--- NOTE | 2019-07-03 07:30 | NUR ---
Opening Shift note Assumed care of patient from NOC RN. Patient is AOx4, no signs and symptoms of distress, sob, or pain noted. Bed is in lowest locked position, side rails up x2, and call light is within reach. Updated patient on plan of care, patient verbalized understanding. I will continue to monitor q1hr and PRN.
[2019-07-03 08:30] VITALS: BP 127/86
[2019-07-03] MEDS ORDERED: ENALAPRIL MALEATE 10 MG TAB PO SCH (10:00)
[2019-07-03] MEDS ORDERED: METOPROLOL TARTRATE 25 MG TAB PO SCH (10:00)
[2019-07-03] MEDS: ASPirin 81 mg TAB PO SCH (11:40)
[2019-07-03] MEDS: AMIODARONE HCL 200 MG TAB PO SCH ×2 (11:41→21:56)
[2019-07-03] MEDS: CARVEDILOL 12.5 MG TAB PO SCH ×2 (11:42→21:58)
[2019-07-03] MEDS: APIXABAN 5 MG TAB PO SCH ×2 (11:42→21:58)
[2019-07-03] MEDS: DIGOXIN 0.125 MG TAB PO SCH (11:43)
[2019-07-03] MEDS: methIMAzole 5 MG TAB PO SCH (11:44)
--- NOTE | 2019-07-03 11:50 | NUR ---
Physician Rounding Dr. Tom at bedside. Updated him on patient status. Per MD patient will have D-dimer lab drawn and if it comes back high to notify him, as well as have repeat thyroid lab draws. I will follow thorough with MD orders.
--- NOTE | 2019-07-03 12:30 | NUR ---
Physician Rounding at bedside. Updated him on patients status. Per MD patient is to have an ECHO done and have an ablation on Friday or Friday. I will follow through with MD orders.
[2019-07-03 13:03] VITALS: BP 108/70
--- NOTE | 2019-07-03 13:07 | NUR ---
Patients VS B/P is 108/70, hr 70 bpm, o2 saturation at 99% on 2 L nasal cannula. Patient is AOx4 no s/s of distress noted. I will continue to monitor Q1HR and PRN.
--- NOTE | 2019-07-03 13:17 | NUR ---
b/p Assessment Patients B/P is 80/52, HR 70 bpm, o2 saturation at 99% on 2L nasal cannula. I will reassess and continue to monitor Q1HR and PRN.
--- NOTE | 2019-07-03 15:10 | NUR ---
BP Reassessment. VS are BP of 72/43, HR 71 bpm, O2 saturation at 100% on 2 L on nasal cannula.
--- NOTE | 2019-07-03 15:15 | NUR ---
notified MD regarding low B/P Updated MD Tom about patients low B/P of 72/43. Per MD discontinue Vasotec and Lopressor, administer 500ml bolus of NS and notify MD Cohn. I will follow through with MD orders.
[2019-07-03] MEDS ORDERED: SODIUM CHLORIDE 0.9% 500 ML IV ONE (15:30)
[2019-07-03 17:00] VITALS: BP 90/58
--- NOTE | 2019-07-03 18:05 | NUR ---
B/P Reassessment. Patient is receiving 500ml bolus of normal saline. His BP is 80/55, HR 2bpm and the patient is asymptomatic.
--- NOTE | 2019-07-03 18:15 | NUR ---
called MD Left message for Dr. Cohn about patient receiving a 500ml bolus of NS, and regarding low BP. Awaiting call back.
--- NOTE | 2019-07-03 18:24 | NUR ---
Received call back Dr. Cohn called back, updated him on low B/P of 80/55 after 500ml bolus, updated him regarding elevated D-dimer level. Per MD give 3mcg/kg/min of dobutamine for B/P and continue with treatment with Eliquis.
--- NOTE | 2019-07-03 19:30 | NUR ---
Opening Shift Note Assumed care of patient, awake and alert. No S/S of distress/SOB or pain. Instructed on POC and to call for assist PRN, will continue to monitor for changes Q1hr and PRN. Bed locked in lowest position and bed rails up x2. Call light within reach.
--- NOTE | 2019-07-03 19:35 | NUR ---
end of shift note endorsed care of patient to NOC NISA Anthony. No s/s of distress noted at this time.
[2019-07-03] MEDS: DOBUTamine 1000MCG/ML 250 ML IV SCH (20:19)
[2019-07-03] MEDS: GABAPENTIN 100 MG CAP PO SCH (21:57)
[2019-07-03] MEDS: LORazepam 0.5 MG TAB PO PRN (21:59)
[2019-07-03] MEDS: ATORVASTATIN 20 MG TAB PO SCH (21:59)
[2019-07-03 22:00] VITALS: BP 138/76
--- NOTE | 2019-07-04 01:09 | NUR ---
IV insertion IV access obtained, via clean sterile technique by inserting a 22 gauge catheter in the right forearm after 1 attempt. IV secured properly. No trauma to site. Patient tolerated well. Will continue to monitor.
[2019-07-04 05:00] VITALS: BP 97/52
[2019-07-04] MEDS: FUROSEMIDE 20 MG/2 ML VIAL IV SCH ×2 (06:00→18:00)
--- NOTE | 2019-07-04 07:30 | NUR ---
Opening shift note care of patient assumed from NOC NISA Anthony. Patient is AOx4 no s/s of distress noted. Updated patient on plan of care and they verbalized understanding. Bed is in lowest locked position and call light is within reach. I will continue to monitor Q1hr and PRN.
[2019-07-04 09:00] VITALS: BP 107/53
[2019-07-04] MEDS: CARVEDILOL 12.5 MG TAB PO SCH ×2 (10:00→21:43)
[2019-07-04] MEDS ORDERED: LEVOTHYROXINE SODIUM 50 MCG TAB PO ONE (10:00)
[2019-07-04] MEDS: SOD CHL 0.45% 1,000 ML IV SCH ×3 (10:44→22:11)
[2019-07-04] MEDS: DIGOXIN 0.125 MG TAB PO SCH (10:47)
[2019-07-04] MEDS: ASPirin 81 mg TAB PO SCH (10:47)
[2019-07-04] MEDS: APIXABAN 5 MG TAB PO SCH ×2 (10:47→21:43)
[2019-07-04] MEDS: methIMAzole 5 MG TAB PO SCH (10:48)
[2019-07-04] MEDS: AMIODARONE HCL 200 MG TAB PO SCH ×2 (10:49→21:42)
[2019-07-04] MEDS: DOBUTamine 1000MCG/ML 250 ML IV SCH ×3 (10:50→21:42)
--- NOTE | 2019-07-04 11:19 | NUR ---
physician ghanshyaming Dr. Negro arauz. updated him on patient status. new ordered received i will follow through with orders.
--- NOTE | 2019-07-04 12:30 | NUR ---
Mcclelland catheter insertion Patient assessed and determined to be in need of mcclelland catheter. Order obtained from MD Tmo. Patient educated on catheter and reason for insertion. All questions answered. Mcclelland catheter 14 guage Cook Islander inserted with clean sterile technique. Patient tolerated well.
[2019-07-04 12:58] VITALS: BP 89/57
[2019-07-04 17:22] VITALS: BP 114/58
--- NOTE | 2019-07-04 19:15 | NUR ---
End of shift note care of patient endorsed to NOC NISA Kunz. No s/s of distress noted at this time.
--- NOTE | 2019-07-04 19:30 | NUR ---
Opening Shift Note Assumed care of patient, AOx4. Fall and safety precautions in place. No S/S of distress/SOB or pain. Call light within reach and able to use. Instructed on POC and to call for assist PRN, patient verbalized understanding and in agreement. Will continue to monitor for changes Q1hr and PRN.
[2019-07-04] MEDS: ATORVASTATIN 20 MG TAB PO SCH (21:43)
[2019-07-04] MEDS: GABAPENTIN 100 MG CAP PO SCH (21:43)
[2019-07-04] MEDS: traMADol HCL 50 MG TAB PO PRN (21:44)
[2019-07-04 22:00] VITALS: BP 121/62
--- NOTE | 2019-07-04 22:00 | NUR ---
TEMP Patient's oral temp is 99.5 F. Patient has multiple blankets on at this time. Cooling measures initiated. Patient educated on need for cooling measures, patient verbalized understanding and in agreement. Will continue to monitor.
[2019-07-04] MEDS: TEMAZEPAM 15 MG CAP PO PRN (22:58)
--- NOTE | 2019-07-04 23:00 | NUR ---
TEMP RECHECK Patient's oral temperature is now 98.8 F. Will continue to monitor.
--- NOTE | 2019-07-05 | NUR ---
NPO Patient NPO status. Patient educated on indication, patient verbalized understanding and in agreement. Will continue to monitor.
[2019-07-05 05:00] VITALS: BP 104/52
--- NOTE | 2019-07-05 05:20 | NUR ---
[facility] Paged for Temp Patient's oral temp is 99.6 F. [facility] paged to update on patient status. Awaiting call back. Will continue to monitor.
--- NOTE | 2019-07-05 05:22 | NUR ---
Call back from [facility] Received call back from [facility]. Updated on patient status. New order received (see new orders). Will carry out. Will continue to monitor patient.
[2019-07-05] MEDS ORDERED: ACETAMINOPHEN 325 MG TAB PO PRN (05:30)
[2019-07-05] MEDS: FUROSEMIDE 20 MG/2 ML VIAL IV SCH ×2 (05:50→17:31)
--- NOTE | 2019-07-05 07:03 | NUR ---
BP Check Checked patient's blood pressure d/t patient stating that he did not feel well and felt slightly dizzy. Blood pressure is 84/47 mm Hg. Rechecked patient's blood pressure and persists to be low. [facility] paged. Awaiting call back.
--- NOTE | 2019-07-05 07:07 | NUR ---
Received call-back fro [facility] Reeived call back rfom [facility]. Updated on patient status. Received new order for fluid bolus 1 liter NS. Then to recheck blood pressure after one hour. Will endorse to day shift RN.
--- NOTE | 2019-07-05 07:11 | NUR ---
[facility] Paged [facility] paged to clarify order due to patient's PMH of CHF. Awaiting call back. Will hold off on order for now. Will continue to monitor.
[2019-07-05] MEDS ORDERED: SODIUM CHLORIDE 0.9% 1,000 ML IV ONE (07:15)
--- NOTE | 2019-07-05 07:22 | NUR ---
Opening Shift Note Assumed care of patient, awake and alert X4. No S/S of distress/SOB or pain. Instructed on POC and to call for assist PRN, will continue to monitor for changes Q1hr and PRN.
--- NOTE | 2019-07-05 07:35 | NUR ---
PAGED DR. HANSON SPOKE TO DR. HANSON AT THIS TIME. UPDATED ON PATIENT'S BLOOD PRESSURE 84/47 MM HG AND ORDER RECEIVED FROM [facility] TO ADMINISTER 1L OF NS WHICH IS BEING HELD DUE TO FURTHER CLARIFICATION IN REGARDS TO PATIENT'S PMH OF CHF. MD HANSON STATES NOT TO ADMINISTER THE 1L NS BOLUS WHICH HAS BEEN HELD AT THIS TIME. ORDER RECEIVED FROM MD HANSON TO RATHER ADMINSITER 500ML BOLUS OF NS ONE TIME, READ BACK AND VERIFIED (SEE ORDERS). MD WOULD LIKE TO PROCEED/CONTINUE TO SCHEDULED PROCEDURE THIS AM. ADDITIONALLY, SPOKE TO VISUAL BASIC .NET DEVELOPER EAR MOLD LABORATORY TECHNICIAN WHO IS AWAITING PATIENT. NOTIFIED DIRECTOR OF FRONT OFFICE THAT PATIENT WILL BE SENT DOWN ONCE FLUID BOLUS IS HUNG. RN VERBALIZED UNDERSTANDING AND IN AGREEMENT. CARE ENDORSED TO DAY SHIFT RN.
--- NOTE | 2019-07-05 07:42 | NUR ---
500 ML BOLUS HUNG AND RUNNING TO THE LEFT FOREARM IV Addendum: 07/05/19 at 0846 by LAUREANO SUERO RN RN IV TO THE RIGHT FOREAM AND RIGHT HAND
[2019-07-05] MEDS ORDERED: SODIUM CHLORIDE 0.9% 500 ML IV ONE (07:45)
--- NOTE | 2019-07-05 07:58 | NUR ---
IV REASSESSMENT LEFT HAND 22G IV LEAKING LEFT FOREARM 22G POSSIBLE INFILTRATION. WILL CALL DOWN TO VALVE GRINDER AND UPDATE Addendum: 07/05/19 at 0828 by LAUREANO SUERO RN RN IV TO THE RIGHT HAND AND RIGHT FOREARM
--- NOTE | 2019-07-05 08:03 | NUR ---
skin assessment pt's bilateral groin area including genital area showing signs of maceration. warm wet towel used to clean yeast between skin folds before shaving bilateral groin for procedure. pt tolerated well.
--- NOTE | 2019-07-05 08:03 | NUR ---
Recieved pt to orthodontic laboratory technician. Pt presented to orthodontic laboratory technician altered and confused. pt does not answer questions appropriately, answers, "I don't know" to simple questions. Also randomly answers, "it's 4 years old.." to question re: "who's the president?" Pt's initial BP on arrival noted to be 87/59. Both periph IVs, 22g RFA and 22g R hand are infiltrated with fluids running to the RFA. Both IVs d/c'd. New IV started to LFA, 20g; fluid bolus resumed to new PIV. Reviewed labs and Sodium noted to be 127 with last lab drawn on the . MD Cohn notified by phone.
--- NOTE | 2019-07-05 08:06 | NUR ---
CALLED LEAD SOFTWARE ENGINEER RE: NO 20G IV AND IV TO LEFT HAND LEAKING AND POSSIBLE INFILTRATION TO THE LEFT FOREARM. ACCORDING TO EMMETT "JUST GO AHEAD AND BRING HIM DOWN. Addendum: 07/05/19 at 0827 by LAUREANO SUERO RN RN IV TO THE RIGHT HAND AND RIGHT FOREARM
--- NOTE | 2019-07-05 08:15 | NUR ---
PT BROUGHT DOWN TO DISPLAYER FOR PROCEDURE
[2019-07-05] MEDS ORDERED: LIDOCAINE 2%HCL (LOCAL ANESTH.) INJ 20ML MDV ONE (08:22)
--- NOTE | 2019-07-05 08:32 | NUR ---
improved B/P sys B/P 94/65
--- NOTE | 2019-07-05 08:53 | NUR ---
Spoke to Dr Cohn by phone made aware of pt's status (labs and mentation), attempts to reach pt's son for consent.
[2019-07-05 09:00] VITALS: BP 87/49
--- NOTE | 2019-07-05 09:07 | NUR ---
procedure aborted Received phone order from MD to abort procedure for reasons (see previous notes)
--- NOTE | 2019-07-05 09:09 | NUR ---
phone report endorsed to primary RN Nina
--- NOTE | 2019-07-05 09:13 | NUR ---
RECEIVED REPORT FROM RN IN ORACLE REPORTS DEVELOPER PER RN "PT IS GOING TO BE BROUGHT BACK UP TO THE FLOOR, THERE WERE A FEW ISSUES WITH THE PATIENT AND IT WE HAVE DECIDED TO WAIT TO DO THE PROCEDURE"
[2019-07-05] MEDS ORDERED: LEVOTHYROXINE SODIUM 50 MCG TAB PO SCH (10:00)
[2019-07-05] MEDS: CARVEDILOL 12.5 MG TAB PO SCH ×2 (10:00→21:23)
--- NOTE | 2019-07-05 10:02 | NUR ---
IV insertion IV access obtained, via clean sterile technique by inserting 22 gauge catheter at RIGHT FOREARM after 1 attempt(s). IV secured properly. No trauma to site. Patient tolerated well.
[2019-07-05] MEDS: ASPirin 81 mg TAB PO SCH (11:02)
[2019-07-05] MEDS: AMIODARONE HCL 200 MG TAB PO SCH ×2 (11:02→21:16)
[2019-07-05] MEDS: DIGOXIN 0.125 MG TAB PO SCH (11:03)
[2019-07-05] MEDS: APIXABAN 5 MG TAB PO SCH ×2 (11:03→21:17)
--- NOTE | 2019-07-05 11:59 | NUR ---
ROUNDING MD Bhupinder SCHAEFER AT BEDSIDE. ALL QUESTIONS AND CONCERNS ADDRESSED AT THIS TIME.
[2019-07-05 12:30] VITALS: BP 100/48
[2019-07-05] MEDS: LEVOTHYROXINE SODIUM 50 MCG TAB PO SCH (12:30)
--- NOTE | 2019-07-05 12:38 | NUR ---
PLATER PRINTED CIRCUIT BOARD PANELS AT BEDSIDE TECH ATTEMPTING TO TAKE PATIENT DOWN TO RADIOLOGY. PT REFUSING HEAD CT AT THIS TIME STATING "LISTEN, I DO NOT NEED A PICTURE OF MY HEAD, IT IS STUPID!" PT EDUCATED ABOUT IMPORTANCE OF COMPLIANCE.
--- NOTE | 2019-07-05 12:45 | NUR ---
MD Bhupinder SCHAEFER UPDATED MD ON PT REFUSAL OF HEAD CT
[2019-07-05] MEDS: DOBUTamine 1000MCG/ML 250 ML IV SCH ×3 (14:06→19:30)
[2019-07-05] MEDS: BUMETANIDE 2.5mg/10ml (0.25 mg/ml) INJ IV SCH (14:08)
[2019-07-05 14:43] LABS: Sodium Urine 37 mmol/L (40-220)
[2019-07-05 14:46] LABS: Creatinine, Urine 88 mg/dL (30.0-125.0)
[2019-07-05 17:16] VITALS: BP 109/78
--- NOTE | 2019-07-05 18:28 | NUR ---
MD HANSON CALLED PER RN IS TO OBTAIN CONSENTS WITH [facility]ENE[facility] AND PREPARE PATIENT FOR PROCEDURE TOMORROW AM AT 0730
--- NOTE | 2019-07-05 18:33 | NUR ---
TELEPHONE CONSENT OBTAINED FROM [facility] NAVARRO PHONE CONSENT FOR ELECTROPHYSIOLOGY STUDY AND ABLATION OBTAINED. SECOND RN SUMMER VERIFIED CONSENT.
--- NOTE | 2019-07-05 19:45 | NUR ---
Opening Shift Note Upon entering room, patient is alert and oriented x4. No S/S of distress/SOB or pain. Fall and safety equipment/precautions are in place. Call light is within reach and able to use. Dobutamine drip at bedside. Instructed on plan of care and to call for assist PRN, patient verbalized understanding and in agreement. Will continue to monitor for changes Q1hr and PRN.
[2019-07-05] MEDS ORDERED: LORazepam 2MG/ML-1ML VIAL IV PRN (20:45)
[2019-07-05] MEDS ORDERED: MORPHINE SULF INJ 2 MG/ML SYRINGE 1ML IV PRN (21:00)
[2019-07-05] MEDS: GABAPENTIN 100 MG CAP PO SCH (21:17)
[2019-07-05] MEDS: ATORVASTATIN 20 MG TAB PO SCH (21:17)
[2019-07-05] MEDS: traMADol HCL 50 MG TAB PO PRN (21:30)
--- NOTE | 2019-07-05 21:30 | NUR ---
Pain Assessment Patient c/o pain rated 8/10 using adult pain scale to generalized back, a chronic area of pain. Pain relieving methods discussed with patient. Patient verbalized understanding and in agreement to have pain medication for pain relief. See emar for administration. Will continue to monitor.
[2019-07-05] MEDS: TEMAZEPAM 15 MG CAP PO PRN (21:31)
[2019-07-05 21:46] VITALS: BP 114/61
--- NOTE | 2019-07-05 22:30 | NUR ---
Pain Reassessment Patient denies pain, resting in bed, comfortably with no apparent s/s of distress. Will continue to monitor.
[2019-07-06] MEDS: DOBUTamine 1000MCG/ML 250 ML IV SCH ×3 (01:34→23:53)
--- NOTE | 2019-07-06 02:30 | NUR ---
Unsustained VTach While this primary RN was on lunch, color television console monitor called unit stating that patient had unsustained vtach. Upon return from lunch and entering room. patient has eyes closed and eyes open to voice. Patient is no s/s of distress and denies any abnormal symptoms. Vital signs taken: blood pressure 101/63 mm Hg, respirations 16 even and unlabored, heart rate 80 bpm, oxygen saturation 100% on 3 L NC, and no pain. EKG taken, abnormal reading that is a paced rhythm, placed in chart. Patient has plans this AM for EP study/ablation with pelletizer operator following and on case with patient. On-call hosp notifed of patient events and status. All questions answered. Received no new orders, except to continue to monitor patient. Patient is resting comfortably AOx4 in bed. Will continue to monitor patient.
[2019-07-06 04:46] VITALS: BP 104/47
[2019-07-06] MEDS: FUROSEMIDE 20 MG/2 ML VIAL IV SCH ×2 (05:38→18:00)
--- NOTE | 2019-07-06 07:30 | NUR ---
ROUNDS/STATUS PT RESTING IN BED AWAKE A&O, HOWEVER VERY HARD OF HEARING. PT READS LIPS TO AN EXTENT AND RESPONDS APPROPRIATELY WHEN SPOKEN TO LOUDLY AND CLOSE. PT ASKING ABOUT HIS "PROCEDURE TODAY TO MAKE MY HEART TOTALLY BIONIC", PT TOLD THAT THIS RN WILL CALL TO CONFIRM TIME WITH [facility] AND NOTIFY HIM OF SCHEDULE. PT IVS TO RIGHT AND LEFT ARMS LEAKING AND POORLY FLUSHING WILL REPLACE ANDREW PT HAS NO C/O PAIN OR S/S OF DISTRESS, BED IN LOW POSITION AND CALL LIGHT IN PLACE WILL CONTINUE TO MONITOR
--- NOTE | 2019-07-06 08:00 | NUR ---
IV REMOVED AND REPLACED #20 TO RIGHT UPPER ARM PLACED #20 TO LEFT FA PLACED IVS TO RIGHT FA AND LEFT UPPER ARM REMOVED WITH CATHETER INTACT.
[2019-07-06 09:00] VITALS: BP 134/74
--- NOTE | 2019-07-06 09:16 | NUR ---
BUSINESS ANALYSIS PROFESSIONAL CALLED TO CONFIRM TIME FOR PROCEDURE. DYAN PAULA INFORMED THIS RN THAT THE PROCEDURE HAS BEEN CANCELED AND REMOVED FORM THE SCHEDULE. SHE STATES THE DOCTOR WILL COME SPEAK TO HIM REGARDING THE DECISION.
[2019-07-06] MEDS: BUMETANIDE 2.5mg/10ml (0.25 mg/ml) INJ IV SCH (10:39)
[2019-07-06] MEDS: AMIODARONE HCL 200 MG TAB PO SCH ×2 (10:40→21:48)
[2019-07-06] MEDS: APIXABAN 5 MG TAB PO SCH ×2 (10:41→21:47)
[2019-07-06] MEDS: CARVEDILOL 12.5 MG TAB PO SCH ×2 (10:41→21:47)
[2019-07-06] MEDS: DIGOXIN 0.125 MG TAB PO SCH (10:41)
[2019-07-06] MEDS: LEVOTHYROXINE SODIUM 50 MCG TAB PO SCH (10:42)
--- NOTE | 2019-07-06 11:30 | NUR ---
WOUND CARE NOTE: Wound care in to see patient per wound care request regarding skin integrity issue that are noted present on admission. Bedside nurse took photograph of patient's skin issue to bilateral groin for reference. Patient is 68 years old male with admitting diagnosis of Acute Kidney Injury secondary to Diarrhea, Dehydration. Patient is resting in bed in Rm. 281B. Patient is awake, alert and oriented but hard of hearing. Patient is in no stated pain at this time. He's self turning and repositioning. His Richard score is 18. Noted moist redness to patient's bilateral groin and upper medial thigh consistent with MASD/intertriginous dermatitis. Reports of diarrhea for four days prior admission. His buttocks has dry, red patchy skin, reports of history of psoriasis. Patient is receiving BID/PRN cleaning and application of Z Guard cream to sacral, buttocks and antifungal clear ointment to bilateral groin and thighs per MD order. No open wound or pressure injury noted. Patient tolerated well. Bed in low position, call rodriguez on hand with all safety precautions in placed. No further wound care monitoring needed at this time. RECOMMENDATION: Nursing to continue with BID/PRN cleaning and application of Barrier cream to sacral, buttocks and groin intertrigo per MD order, redistribute pressure points with pillows, reconsult for active wound, pressure injury, Low Richard score of 12 and below. Addendum: 07/06/19 at 1626 by Jodee Grimm RN Amended: Links added.
[2019-07-06] MEDS ORDERED: FOLIC ACID 1 MG, MULTIPLE VITAMIN 10 ML, MAGNESIUM SULF SDV 50% 8 MEQ, THIAMINE INJ 100... INJ SCH ×5 (12:00)
[2019-07-06] MEDS ORDERED: cefTRIAXone 1GM/50ML D5W 50 ML IV ONE (12:00)
[2019-07-06 13:00] VITALS: BP 100/64
--- NOTE | 2019-07-06 13:30 | NUR ---
RETURNED FROM HEAD CT VIA WHEELCHAIR PT REQUESTING PAIN MEDICATION WILL MEDICATE PER MAR
[2019-07-06] MEDS: HYDROcodone-ACET 5/325MG TAB PO PRN (13:58)
--- NOTE | 2019-07-06 13:58 | NUR ---
PAIN PT C/O 10/17 PAIN, HOWEVER REQUESTS A PO MEDICATIONS AND NOT AN IV. GIVEN NORCO
--- NOTE | 2019-07-06 14:00 | NUR ---
PT WENT DOWN FOR A TEST. ATTEMPT P.T. LATER.
[2019-07-06] MEDS: [UNRECOGNIZED DRUG - OTHER] INJ SCH (15:32)
[2019-07-06] MEDS: MULTIPLE VITAMIN INJ SCH (15:32)
[2019-07-06] MEDS: FOLIC ACID INJ SCH (15:32)
[2019-07-06] MEDS: MAGNESIUM SULF INJ SCH (15:32)
--- NOTE | 2019-07-06 15:45 | NUR ---
DR HANSON AT BEDSIDE, NOTIFIED OF RUNS OF V-TACH. STRIPS SHOWN TO MD AND PLACED IN CHART. NO ORDERS WRITTEN. PT ASYMPTOMATIC AND HAS NO C/O PAIN OR S/S OF DISTRESS
[2019-07-06 17:00] VITALS: BP 91/52
--- NOTE | 2019-07-06 19:45 | NUR ---
PT STATING PAIN 7.5 PATIENT REQUESTING NORCO FOR PAIN. MEDICATION PROVIDED. WILL CONTINUE TO MONITOR.
--- NOTE | 2019-07-06 20:00 | NUR ---
Opening Shift Note Assumed care of patient, awake and alert. No S/S of distress/SOB or pain. Instructed on POC and to call for assist PRN, will continue to monitor for changes Q1hr and PRN.
--- NOTE | 2019-07-06 21:00 | NUR ---
IV removal IV DC'd with clean sterile technique, catheter fully intact. Pressure dressing applied to site. Patient tolerated well. IV insertion IV access obtained, via clean sterile technique by inserting 20 gauge catheter at RIGHT FOREARM after 1 attempt(s). IV secured properly. No trauma to site. Patient tolerated well.
[2019-07-06] MEDS: GABAPENTIN 100 MG CAP PO SCH (21:47)
[2019-07-06] MEDS: ATORVASTATIN 20 MG TAB PO SCH (21:47)
[2019-07-06 22:00] VITALS: BP 120/69
[2019-07-07 05:00] VITALS: BP 107/64
[2019-07-07] MEDS: FUROSEMIDE 20 MG/2 ML VIAL IV SCH ×2 (06:11→18:03)
--- NOTE | 2019-07-07 08:00 | NUR ---
Opening Shift Note Assumed care of patient, awake, alert and oriented. No S/S of distress/SOB or pain. Instructed on POC and to call for assist PRN. Bed locked, in lowest position, call light within reach. Will continue to monitor for changes Q1hr and PRN.
[2019-07-07 09:00] VITALS: BP 127/63
[2019-07-07] MEDS ORDERED: HEPARIN IN NS 1000Units/500mL 0 ML ONE (09:41)
[2019-07-07] MEDS ORDERED: LIDOCAINE 2%HCL (LOCAL ANESTH.) INJ 20ML MDV ONE (09:41)
[2019-07-07] MEDS: BUMETANIDE 2.5mg/10ml (0.25 mg/ml) INJ IV SCH (09:56)
[2019-07-07] MEDS: AMIODARONE HCL 200 MG TAB PO SCH ×2 (09:56→22:35)
[2019-07-07] MEDS: CARVEDILOL 12.5 MG TAB PO SCH ×2 (09:57→22:36)
[2019-07-07] MEDS: DIGOXIN 0.125 MG TAB PO SCH (09:57)
[2019-07-07] MEDS: LEVOTHYROXINE SODIUM 50 MCG TAB PO SCH (09:57)
[2019-07-07] MEDS: APIXABAN 5 MG TAB PO SCH ×2 (09:57→22:35)
[2019-07-07] MEDS: cefTRIAXone 1GM/50ML D5W 50 ML IV SCH (10:15)
[2019-07-07] MEDS: DOBUTamine 1000MCG/ML 250 ML IV SCH ×2 (10:25→20:37)
--- NOTE | 2019-07-07 10:50 | NUR ---
ELECTROENCEPHALOGRAM EEG COMPLETED AT BEDSIDE. NISA AYALA.
[2019-07-07] MEDS: traMADol HCL 50 MG TAB PO PRN (12:25)
[2019-07-07 13:00] VITALS: BP 97/59
[2019-07-07] MEDS: MAGNESIUM SULF INJ SCH (14:37)
[2019-07-07] MEDS: MULTIPLE VITAMIN INJ SCH (14:37)
[2019-07-07] MEDS: [UNRECOGNIZED DRUG - OTHER] INJ SCH (14:37)
[2019-07-07] MEDS: FOLIC ACID INJ SCH (14:37)
[2019-07-07 17:00] VITALS: BP 117/81
--- NOTE | 2019-07-07 17:07 | NUR ---
Assessment Patient is a 68-year old male who is alert and oriented. Attempted to call patient but was unable to speak to him. Assessment was completed with patient son Gregory ). Gregory informed me patient lived home with him. Patient functioned independently and can care for his own ADLs. Gregory informed me patient has a walker and cane but does not use it. Per Gregory patient will return home to his prior living arrangements post discharge and he will transport patient home. Advised Gregory there is a Social Service consult for Safety evaluation. Information and choice letter was given to Gergory via phone. Per Gregory he does not have a home health preference. Informed Gregory clinical information will be faxed to [facility]. Informed Gregory he has the right to participate in all discharge planning. Gregory verbalized understanding and agrees to discharge plan. Per Gilbert with [facility]: ) patient has been accepted and service to start within 24-48hrs upon d/c day. Addendum: 07/07/19 at 1709 by GERALD HERBERT Amended: Links added.
--- NOTE | 2019-07-07 19:35 | NUR ---
Opening Shift Note Assumed care of patient, awake and alert x 4 but very hard of hearing. No S/S of distress/SOB. bed is in lowest position and locked. Call light within reach. Board updated. Tele box number matches monitor and leads are in correct placement. Dobutamine infusing at ordered rate. Instructed on POC and to call for assist PRN, will continue to monitor for changes Q1hr and PRN.
[2019-07-07] MEDS: HYDROcodone-ACET 5/325MG TAB PO PRN (20:38)
--- NOTE | 2019-07-07 21:05 | NUR ---
IV to right upper arm found infiltrated on assessment. IV catheter removed with catheter intact. Site covered with gauze and wrapped in Coban. Placed 20 gauge IV to right hand using clean technique. Site secured and covered with Tegaderm. Tag placed on IV site with time, date and initials. Patient pulled out IV to right forearm while moving. IV catheter found outside of body and intact on assessment. Site cleaned, covered with gauze, and wrapped with Coban bandage. Placed a second 22 gauge IV catheter into right wrist using clean technique. Secured IV catheter and covered with Tegaderm. Tag with initials, date, and name placed over site. Patient tolerated well.
[2019-07-07 22:00] VITALS: BP 117/70
--- NOTE | 2019-07-07 22:32 | NUR ---
Patient had 3 cpka-bh-ydtp runs of ventricular tachycardia, a 7 beat run, a 5 beat run, and a 5 beat run at 2219. patient resting in bed and asymptomatic on assessment. No chest pain noted. Vitals: Temp: 98.2, HR: 69, BP: 123/68, O2 saturation: 99% on 3 l/min NC, RR: 18. EKG revealed paced rhythm, no runs of ventricular tachycardia at this time. Event rhythm strip printed out and placed in chart for MD. Will notify hospitalist at 0000 unless patient becomes symptomatic.
[2019-07-07] MEDS: ATORVASTATIN 20 MG TAB PO SCH (22:35)
[2019-07-07] MEDS: GABAPENTIN 100 MG CAP PO SCH (22:36)
--- NOTE | 2019-07-07 23:01 | NUR ---
Paged MD Cohn to notify him of Ventricular tachycardia episodes. Awaiting call back. Addendum: 07/08/19 at 0659 by STEVEN HUITRON RN Note from 07/05 shows that MD Cohn is aware of episodes of V-Tach. I will endorse to day shift unless patient becomes asymptomatic.
--- NOTE | 2019-07-07 23:05 | NUR ---
Patient had another episode of 4 beat ventricular tachycardia at 2259 and another 4 beat run at 2300. In both cases, pacer began and converted rhythm.
--- NOTE | 2019-07-07 23:57 | NUR ---
Paging hospitalist to notify of multiple runs of ventricular tachycardia since 2218. Patient had 3 [id number]-[id number] runs of ventricular tachycardia, a 7 beat run, a 5 beat run, and a 5 beat run at 2218. patient resting in bed and asymptomatic on assessment. No chest pain noted. Vitals: Temp: 98.2, HR: 69, BP: 123/68, O2 saturation: 99% on 3 l/min NC, RR: 18. EKG revealed paced rhythm, no runs of ventricular tachycardia at this time. Event rhythm strip printed out and placed in chart for MD. Will notify hospitalist at 0000 unless patient becomes symptomatic. Since then, patient has had multiple runs of Ventricular tachycardia, usually 4-5 beats followed by pacer reactivating. Based off history from tele-monitor, patient has been having these runs of ventricular tachycardia. MD Cohn is aware that AICD is pacing "less than 40% biventriular pacing."
--- NOTE | 2019-07-08 00:46 | NUR ---
Spoke to EILEEN Cohen and notified him of the ventricular tachycardia and pacemaker. Per EILEEN Cohen, notify cardiology of continued ventricular tachycardia.
[2019-07-08] MEDS: TEMAZEPAM 15 MG CAP PO PRN (01:01)
[2019-07-08 05:00] VITALS: BP_SYST 111; BP_SYST 138; BP_DIAS 64; BP_DIAS 73
[2019-07-08] MEDS: FUROSEMIDE 20 MG/2 ML VIAL IV SCH ×2 (06:21→18:05)
[2019-07-08] MEDS: DOBUTamine 1000MCG/ML 250 ML IV SCH ×2 (06:21→17:00)
--- NOTE | 2019-07-08 08:00 | NUR ---
Opening Shift Note Assumed care of patient, awake, alert and oriented. No S/S of distress/SOB or pain. Instructed on POC and to call for assist PRN. bed locked, in lowest position, call light within reach, side rails up x2. Will continue to monitor for changes Q1hr and PRN.
--- NOTE | 2019-07-08 08:58 | NUR ---
Spoke with Rand about patients POC. Verified password, verbalized understanding of patients POC.
[2019-07-08 09:00] VITALS: BP 121/75
[2019-07-08] MEDS: BUMETANIDE 2.5mg/10ml (0.25 mg/ml) INJ IV SCH (09:41)
[2019-07-08] MEDS: DIGOXIN 0.125 MG TAB PO SCH (09:42)
[2019-07-08] MEDS: CARVEDILOL 12.5 MG TAB PO SCH ×2 (09:42→22:24)
[2019-07-08] MEDS: APIXABAN 5 MG TAB PO SCH ×2 (09:42→22:24)
[2019-07-08] MEDS: HYDROcodone-ACET 5/325MG TAB PO PRN ×3 (09:43→22:25)
[2019-07-08] MEDS: LEVOTHYROXINE SODIUM 50 MCG TAB PO SCH (09:43)
[2019-07-08] MEDS: AMIODARONE HCL 200 MG TAB PO SCH ×2 (09:43→22:23)
[2019-07-08] MEDS: cefTRIAXone 1GM/50ML D5W 50 ML IV SCH (09:45)
--- NOTE | 2019-07-08 11:14 | NUR ---
ROUNDS Dr Bhupinder Tom at bedside for rounds, new orders received and followed through. Patient updated on plan of care, verbalized understanding.
--- NOTE | 2019-07-08 11:20 | NUR ---
DR COHN Spoke to Dr Cohn via phone, informed Dr Bhupinder Tom would like to know plan of care. Verbalized he will follow up with patient outpatient and he has arranged for [facility] to follow up with patient at his residence. Informed Dr Bhupinder Tom, verbalized understanding. Patient updated on plan of care, verbalized understanding.
--- NOTE | 2019-07-08 12:01 | NUR ---
Dr Du Signed medical records release form faxed to Dr Du's office at [phone]. Patient updated on plan of care, verbalized understanding. Awaiting records.
[2019-07-08 13:00] VITALS: BP 109/62
--- NOTE | 2019-07-08 13:36 | NUR ---
PT refused Pt. refused therapy AM and PM treatments
--- NOTE | 2019-07-08 13:45 | NUR ---
Spoke with Agata from [facility]. Was asking if case management is set up with patient. Will call again in the AM to check again.
[2019-07-08] MEDS: FOLIC ACID INJ SCH (15:19)
[2019-07-08] MEDS: [UNRECOGNIZED DRUG - OTHER] INJ SCH (15:19)
[2019-07-08] MEDS: MAGNESIUM SULF INJ SCH (15:19)
[2019-07-08] MEDS: MULTIPLE VITAMIN INJ SCH (15:19)
[2019-07-08 16:59] VITALS: BP 130/75
--- NOTE | 2019-07-08 19:21 | NUR ---
Care endorsed to NISA Cowan, night nurse.
--- NOTE | 2019-07-08 19:30 | NUR ---
OPENING NOTE REPORT RECEIVED FROM DAY SHIFT RN PATIENT IS A/OX4 RESTING IN BED. PATIENT IS HARD OF HEARING. TWO IV'S IN PLACE. IV TO RIGHT WRIST INFUSING DOBUTAMINE AT ORDERED RATE. IV TO RIGHT HAND INFUSING BANANA BAG HUNG EARLIER BY DAYSHIFT. PHYSICAL ASSESSMENT DONE- SEE INTERVENTIONS. AGRAWAL HANGING TO GRAVITY. POC DISCUSSED, ALL QUESTIONS ANSWERED. WILL MONITOR Q1H PRN THROUGHOUT SHIFT, CALL LIGHT WITHIN REACH.
[2019-07-08] MEDS: LORazepam 0.5 MG TAB PO PRN (20:51)
[2019-07-08 21:58] VITALS: BP 131/69
[2019-07-08] MEDS: GABAPENTIN 100 MG CAP PO SCH (22:23)
[2019-07-08] MEDS: ATORVASTATIN 20 MG TAB PO SCH (22:23)
--- NOTE | 2019-07-08 22:25 | NUR ---
PAIN PATIENT REQUESTS TO HAVE HIS NORCO FOR 6/10 BACK PAIN. NORCO GIVEN ORDERED BY MD. WILL REASSESS PAIN LEVEL IN ONE HOUR
--- NOTE | 2019-07-08 23:25 | NUR ---
PAIN REASSESSMENT PATIENT DENIES ANY PAIN AT THIS TIME PATIENT RESTING COMFORTABLY
[2019-07-09] MEDS: DOBUTamine 1000MCG/ML 250 ML IV SCH (02:01)
[2019-07-09 05:03] VITALS: BP 107/63
[2019-07-09] MEDS: FUROSEMIDE 20 MG/2 ML VIAL IV SCH (06:02)
--- NOTE | 2019-07-09 07:10 | NUR ---
CLOSING PATIENT SLEEPING, VISIBLE RISE AND FALL OF CHEST NOTED. FALL PRECAUTIONS IN PLACE. AGRAWAL DRAINING TO GRAVITY. DOBUTAMINE RUNNING ORDERED. CARE ENDORSED TO DAYSHIFT NISA Roe
--- NOTE | 2019-07-09 08:00 | NUR ---
Opening Shift Note Assumed care of patient, awake, alert and oriented. No S/S of distress/SOB. Patient complaining of pain at 6/10 on pain scale in his back. Will medicate with prescribed medication. Verbalized understanding. Instructed on POC and to call for assist PRN. Bed locked, in lowest position, call light within reach, side rails up x2. Will continue to monitor for changes Q1hr and PRN.
[2019-07-09 09:00] VITALS: BP 104/57
--- NOTE | 2019-07-09 09:00 | NUR ---
Pain Patient complaining of pain in his back 08/17. Medicated with [place] as ordered. Will reassess pain in 1 hour and PRN.
[2019-07-09] MEDS: cefTRIAXone 1GM/50ML D5W 50 ML IV SCH (09:20)
[2019-07-09] MEDS: DIGOXIN 0.125 MG TAB PO SCH (09:21)
[2019-07-09] MEDS: APIXABAN 5 MG TAB PO SCH (09:22)
[2019-07-09] MEDS: HYDROcodone-ACET 5/325MG TAB PO PRN (09:22)
[2019-07-09] MEDS: AMIODARONE HCL 200 MG TAB PO SCH (09:22)
[2019-07-09] MEDS: LEVOTHYROXINE SODIUM 50 MCG TAB PO SCH (09:23)
--- NOTE | 2019-07-09 10:00 | NUR ---
Pain reassessment Patient denies pain at this time. Resting comfortably.
[2019-07-09 10:05] LABS: BUN/Creatinine Ratio 5.9; Calcium 8.9 mg/dL (8.5-10.1); Potassium 3.5 mmol/L (3.5-5.1)
--- NOTE | 2019-07-09 10:05 | NUR ---
NEPHROLOGY Dr Gardner at bedside for Nephrology follow up. New orders received and followed through. Patient updated on plan of care, verbalized understanding.
--- NOTE | 2019-07-09 11:00 | NUR ---
Mcclelland catheter dc'd Order to discontinue mcclelland catheter. Mcclelland dc'd with clean technique following deflation of balloon. Patient tolerated well with no complaints of pain. Continue care.
[2019-07-09] MEDS ORDERED: CARVEDILOL 12.5 MG TAB PO SCH (11:45)
--- NOTE | 2019-07-09 11:45 | NUR ---
CARDIO Call received from Dr Cohn, new orders received to decrease Coreg from 12.5 mg P.O. Q 12HR to Coreg 6.25 mg P.O. Q 12 HRS. Stop Amiodarone P.O. Patient to follow up with him on 07/13/2019. Dr Bhupinder Tom notified, verbalized understanding.
--- NOTE | 2019-07-09 11:52 | NUR ---
[facility] Call received from Agata with [facility]. Updated on requested information.
[2019-07-09 13:00] VITALS: BP 101/65
--- NOTE | 2019-07-09 14:55 | NUR ---
ABG Results given to Dr Bhupinder Tom, verbalized understanding.
[2019-07-09 14:56] VITALS: BP 101/65
--- NOTE | 2019-07-09 16:35 | NUR ---
Discharge instructions given as ordered. Encourage to follow up with PMD as instructed. All questions and concerns addressed. Patient verbalized understanding. Medication reconciliation form completed and copy given to patient. Home medications held in Pharmacy returned to patient. IV removed with catheter intact, pressure dressing applied. Telemetry unit returned to ICU. Patient awaiting transportation.
--- NOTE | 2019-07-09 17:17 | NUR ---
Patient taken to vehicle via wheelchair with all personal belongings, accompanied by staff and family member. No distress noted at time of departure.
[2019-07-09] MEDS ORDERED: TAMSULOSIN HYDROCHLORIDE 0.4 MG CAP PO SCH (18:00)
[2019-07-10] MEDS ORDERED: FUROSEMIDE 20 MG TAB PO SCH (10:00)
== END 2019-07-09 17:15 | disposition home or self-care (01) | DRG 871 ==
LOC: ER 15:01 → EDBD 15:01 → TELE 15:02 → TELE-WESTW 21:13
PROVIDERS: ADMIT Hospitalist; ATTEND Family Medicine
DX: A41.9 Sepsis, unspecified organism (principal); I50.43 Acute on chronic combined systolic (congestive) and diastolic (congestive) heart failure; G93.41 Metabolic encephalopathy; N17.0 Acute kidney failure with tubular necrosis; N39.0 Urinary tract infection, site not specified; I13.0 Hypertensive heart and chronic kidney disease with heart failure and stage 1 through stage 4 chronic kidney disease, or unspecified chronic kidney disease; I24.9 Acute ischemic heart disease, unspecified; E87.1 Hypo-osmolality and hyponatremia; I48.20 Chronic atrial fibrillation, unspecified; Z68.41 Body mass index [BMI] 40.0-44.9, adult; N18.9 Chronic kidney disease, unspecified; E86.0 Dehydration; L40.9 Psoriasis, unspecified; G89.29 Other chronic pain; M54.5 Low back pain; E66.01 Morbid (severe) obesity due to excess calories; E05.90 Thyrotoxicosis, unspecified without thyrotoxic crisis or storm; K59.09 Other constipation; E03.9 Hypothyroidism, unspecified; G62.9 Polyneuropathy, unspecified; E78.00 Pure hypercholesterolemia, unspecified; H91.90 Unspecified hearing loss, unspecified ear; I48.0 Paroxysmal atrial fibrillation; Z53.20 Procedure and treatment not carried out because of patient's decision for unspecified reasons; Z79.82 Long term (current) use of aspirin; Z95.0 Presence of cardiac pacemaker; Z79.01 Long term (current) use of anticoagulants; Z80.1 Family history of malignant neoplasm of trachea, bronchus and lung; Z82.49 Family history of ischemic heart disease and other diseases of the circulatory system; Z85.118 Personal history of other malignant neoplasm of bronchus and lung; Z85.850 Personal history of malignant neoplasm of thyroid; Z86.711 Personal history of pulmonary embolism; Z87.891 Personal history of nicotine dependence; Z91.19 Patient's noncompliance with other medical treatment and regimen
CPT/HCPCS: 36415; 36600; 70450; 71045; 74176; 80048; 80053; 80162; 81001; 82140; 82150; 82570; 82805; 83690; 83735; 83880; 83935; 84100; 84300; 84443; 84484; 85025; 85379; 85610; 85730; 86850; 86900; 86901; 87040; 87086; 87088; 87186; 93005; 93306; 95819; 96360; 97163; G0378; J0696

== ENCOUNTER 2019-07-28 13:37 | Inpatient (IN) | payer MEDICARE ==
[~2019-07-28] VITALS: Ht 195.6 cm; Wt 135.0 kg
[~2019-07-28 13:37] MED LIST changes: +CLON0.5T3 PO; +DIGO0.12 PO; +METH10TA6 PO; +METO25TA5 PO; +TRAM50TA2 PO; +WARF1TAB36 PO
[2019-07-28 14:04] LABS: Basophils # (auto) 0.1 10 ^3/uL (0-0.2); Eosinophils # (auto) 0 10 ^3/uL (0-0.8); Eosinophils % (auto) 0.5 % (0.0-7.0); Monocytes # (auto) 0.6 10 ^3/uL (0-1.3)
[2019-07-28 14:06] LABS: Basophils % (auto) 0.9 % (0.0-2.0); Hematocrit 46.4 % (41.0-53.0); Hemoglobin 15.6 g/dL (13.5-17.5); Lymphocytes # (auto) 1.2 10 ^3/uL (0.4-5.4); Lymphocytes % (auto) 13.7 % (10.0-50.0); Mean Corpuscular Hemoglobin 35.8 pg (28.0-32.0); Mean Corpuscular Hgb Conc. 33.6 g/dL (32.0-36.0); Mean Corpuscular Volume 106.7 fL (80.0-100.0); Monocytes % (auto) 6.8 % (0.0-12.0); Neutrophils % (auto) 78.1 % (37.0-80.0); Platelet Count (auto) 332 10^3/uL (140-450); Red Blood Cells 4.35 10^6/uL (4.5-5.90); Red Cell Distribution Width 13.7 % (11.8-14.3)
[2019-07-28 14:22] LABS: Albumin 3.5 g/dL (3.4-5.0); BUN/Creatinine Ratio 9.9; Calcium 9.5 mg/dL (8.5-10.1); Magnesium 2.6 mg/dL (1.6-2.6); Potassium 4.9 mmol/L (3.5-5.1)
[2019-07-28 14:33] LABS: Bilirubin, Total 1.4 mg/dL (0.2-1.0); Total Protein 8.3 g/dL (6.4-8.2)
[2019-07-28] MEDS ORDERED: MORPHINE SULF INJ 2 MG/ML SYRINGE 1ML IV PRN (17:00)
[2019-07-28] MEDS ORDERED: FUROSEMIDE 40 MG/4 ML VIAL IV ONE (17:00)
[2019-07-28] MEDS ORDERED: NITROGLYCERIN 0.4 MG SL TAB SL PRN ×2 (17:00→21:30)
--- NOTE | 2019-07-28 18:15 | NUR ---
Telemetry admit from ER [facility]AG[facility] admitted to Telemetry unit with no report received. Patient oriented to Britany merlos RN, unit, room, bed, and unit policies regarding patient care and visiting hours. Patient now on continuous telemetry monitoring, tele box #59 running sinus rhythm in the 70's. Patient's BP reassessed as it was high in ER with no reassessment done. BP is stable at 126/92. Patient weighed by bedscale and encouraged to call if they need something. All questions and concerns addressed, patient verbalized understanding.
[2019-07-28 18:19] VITALS: BP 126/92
[2019-07-28 18:41] VITALS: BP 147/85
[2019-07-28] MEDS ORDERED: TEMAZEPAM 15 MG CAP PO PRN (21:00)
[2019-07-28] MEDS ORDERED: ACETAMINOPHEN 325 MG TAB PO PRN (21:30)
[2019-07-28] MEDS ORDERED: MORPHINE SULFATE 4 MG/ML SYR/VIAL IV PRN (21:30)
[2019-07-28] MEDS ORDERED: ALUM & MAG HYDROX-SIMETH LIQ(MAALOX) 30 ML PO ONE (21:30)
[2019-07-28] MEDS ORDERED: METOPROLOL TARTRATE 25 MG TAB PO SCH (22:00)
[2019-07-28] MEDS ORDERED: ATORVASTATIN 20 MG TAB PO SCH (22:00)
[2019-07-28] MEDS: CARVEDILOL 12.5 MG TAB PO SCH (22:21)
[2019-07-28] MEDS: AMIODARONE HCL 200 MG TAB PO SCH (22:21)
[2019-07-28] MEDS: APIXABAN 5 MG TAB PO SCH (22:22)
[2019-07-28] MEDS: HYDROcodone-ACET 5/325MG TAB PO PRN (22:22)
[2019-07-28 22:57] VITALS: BP 137/80
[2019-07-29] MEDS: HYDROcodone-ACET 5/325MG TAB PO PRN (04:28)
[2019-07-29 05:50] VITALS: BP 129/90
[2019-07-29] MEDS ORDERED: FUROSEMIDE 40 MG/4 ML VIAL IV SCH (06:00)
[2019-07-29 09:00] VITALS: BP 114/72
[2019-07-29] MEDS: AMIODARONE HCL 200 MG TAB PO SCH (09:58)
[2019-07-29] MEDS: CARVEDILOL 12.5 MG TAB PO SCH (09:59)
[2019-07-29] MEDS: APIXABAN 5 MG TAB PO SCH (09:59)
[2019-07-29] MEDS ORDERED: ENALAPRIL MALEATE 10 MG TAB PO SCH (10:00)
[2019-07-29] MEDS ORDERED: DIGOXIN 0.125 MG TAB PO SCH (10:00)
[2019-07-29] MEDS ORDERED: ASPirin 81 mg TAB PO SCH (10:00)
[2019-07-29] MEDS ORDERED: DOCUSATE SOD 100 MG CAP PO SCH (10:00)
--- NOTE | 2019-07-29 10:56 | NUR ---
MD Tom at bed side discussing POC with patient. Patient verbalizes he does not want to wait for more test or cardiac consultation and wishes to go home AMA. explained risks of leaving AMA. Patient continues to want to go home.
--- NOTE | 2019-07-29 11:30 | NUR ---
AMA Note SCOTT GARCÍA states they want to leave the hospital Against Medical Advice (AMA). Patient encouraged to stay for further treatment/stabilization. Sonal Tom MD notified of patient's wishes. Patient advised of the risks and benefits of leaving AMA. Patient verbalized understanding. Patient encouraged to return to the ER if symptoms do not improve or worsen.
== END 2019-07-29 11:30 | disposition left against medical advice (07) | DRG 291 ==
LOC: ER 13:37 → EDBD 13:37 → TELE 13:38 → TELE-WESTW 18:00
PROVIDERS: ADMIT Hospitalist; ATTEND Family Medicine
DX: I13.0 Hypertensive heart and chronic kidney disease with heart failure and stage 1 through stage 4 chronic kidney disease, or unspecified chronic kidney disease (principal); N17.0 Acute kidney failure with tubular necrosis; I50.23 Acute on chronic systolic (congestive) heart failure; E87.1 Hypo-osmolality and hyponatremia; I95.9 Hypotension, unspecified; I48.91 Unspecified atrial fibrillation; E66.01 Morbid (severe) obesity due to excess calories; N18.9 Chronic kidney disease, unspecified; E78.00 Pure hypercholesterolemia, unspecified; M54.5 Low back pain; G89.29 Other chronic pain; Z53.29 Procedure and treatment not carried out because of patient's decision for other reasons; F41.9 Anxiety disorder, unspecified; Z79.01 Long term (current) use of anticoagulants; Z79.899 Other long term (current) drug therapy; Z80.1 Family history of malignant neoplasm of trachea, bronchus and lung; Z82.49 Family history of ischemic heart disease and other diseases of the circulatory system; Z85.118 Personal history of other malignant neoplasm of bronchus and lung; Z79.82 Long term (current) use of aspirin; Z95.0 Presence of cardiac pacemaker; Z68.34 Body mass index [BMI] 34.0-34.9, adult
CPT/HCPCS: 36415; 71045; 80053; 83735; 84443; 84484; 85025; 87081; 93005; G0378

== ENCOUNTER 2021-09-23 16:54 | Inpatient (IN) | payer MEDICARE ==
[~2021-09-23] VITALS: Ht 195.6 cm; Wt 103.6 kg
[2021-09-23] MEDS ORDERED: ASPirin 81 mg TAB PO ONE (17:15)
[2021-09-23] MEDS ORDERED: AMIODARONE 450mg/250ml AE 250 ML IV SCH (17:15)
[2021-09-23] MEDS ORDERED: AMIODARONE HCL 150 MG in D5W 5% 100 ML IV ONE (17:15)
[2021-09-23] MEDS ORDERED: AMIODARONE HCL (50 MG/ ML) 3 ML VIAL IV ONE (17:19)
[2021-09-23 17:57] LABS: Basophils # (auto) 0 10 ^3/uL (0-0.2); Basophils % (auto) 0.2 % (0.0-2.0); Eosinophils # (auto) 0 10 ^3/uL (0-0.8); Eosinophils % (auto) 0.1 % (0.0-7.0); Hematocrit 40.2 % (41.0-53.0); Hemoglobin 12.9 g/dL (13.5-17.5); Lymphocytes # (auto) 1.8 10 ^3/uL (0.4-5.4); Lymphocytes % (auto) 15.5 % (10.0-50.0); Mean Corpuscular Hemoglobin 28.4 pg (28.0-32.0); Mean Corpuscular Hgb Conc. 32.1 g/dL (32.0-36.0); Mean Corpuscular Volume 88.7 fL (80.0-100.0); Monocytes # (auto) 1.1 10 ^3/uL (0-1.3); Monocytes % (auto) 9.3 % (0.0-12.0); Neutrophils # (auto) 8.6 10 ^3/uL (1.6-8.6); Neutrophils % (auto) 74.9 % (37.0-80.0); Red Blood Cells 4.53 10^6/uL (4.5-5.90); White Blood Cell 11.5 10^3/uL (4.4-10.8)
[2021-09-23 18:08] LABS: Albumin 3.1 g/dL (3.4-5.0); Calcium 9.6 mg/dL (8.5-10.1)
[2021-09-23 18:11] LABS: INR 1.19 (0.9-1.15); Partial Thromboplastin Time 30.3 sec (24.6-33.4)
[2021-09-23 18:13] LABS: BUN/Creatinine Ratio 24.6; Bilirubin, Total 0.9 mg/dL (0.2-1.0); Total Protein 7.5 g/dL (6.4-8.2)
[2021-09-23] MEDS ORDERED: ADENOSINE 6 MG/2 ML INJ IV ONE ×2 (19:00→19:15)
[2021-09-23] MEDS ORDERED: LABETALOL HCL 200 MG TAB PO ONE (20:30)
[2021-09-23] MEDS ORDERED: fentaNYL CITRATE 100 MCG/2 ML VL IV ONE (20:45)
[2021-09-23] MEDS ORDERED: ONDANSETRON HCL 4 MG/2 ML VIAL IV PRN (21:15)
[2021-09-23] MEDS ORDERED: MORPHINE SULFATE INJ 2 MG/ml SYRG IV PRN (21:15)
[2021-09-23] MEDS ORDERED: NITROGLYCERIN 0.4 MG SL TAB SL PRN (21:15)
[2021-09-23] MEDS: ATORVASTATIN 20 MG TAB PO SCH (22:12)
[2021-09-23] MEDS: APIXABAN 5 MG TAB PO SCH (22:12)
[2021-09-23] MEDS: CARVEDILOL 12.5 MG TAB PO SCH (22:13)
[2021-09-24 06:23] LABS: Basophils # (auto) 0 10 ^3/uL (0-0.2); Basophils % (auto) 0.5 % (0.0-2.0); Eosinophils # (auto) 0.1 10 ^3/uL (0-0.8); Eosinophils % (auto) 1.2 % (0.0-7.0); Hemoglobin 11.8 g/dL (13.5-17.5); Lymphocytes # (auto) 1.8 10 ^3/uL (0.4-5.4); Lymphocytes % (auto) 22.2 % (10.0-50.0); Mean Corpuscular Hemoglobin 29.8 pg (28.0-32.0); Mean Corpuscular Hgb Conc. 33.9 g/dL (32.0-36.0); Mean Corpuscular Volume 88.1 fL (80.0-100.0); Monocytes # (auto) 0.8 10 ^3/uL (0-1.3); Monocytes % (auto) 10.1 % (0.0-12.0); Neutrophils # (auto) 5.3 10 ^3/uL (1.6-8.6); Red Blood Cells 3.97 10^6/uL (4.5-5.90); Red Cell Distribution Width 13.7 % (11.8-14.3)
[2021-09-24 06:40] LABS: Calcium 9.3 mg/dL (8.5-10.1); Potassium 4.3 mmol/L (3.5-5.1)
[2021-09-24 06:44] LABS: Bilirubin, Total 1.1 mg/dL (0.2-1.0); Total Protein 7.2 g/dL (6.4-8.2)
[2021-09-24] MEDS: PANTOPRAZOLE 40 MG TAB PO SCH (09:31)
[2021-09-24] MEDS: APIXABAN 5 MG TAB PO SCH ×2 (09:31→22:30)
[2021-09-24] MEDS: ENALAPRIL MALEATE 10 MG TAB PO SCH (09:31)
[2021-09-24] MEDS: CARVEDILOL 12.5 MG TAB PO SCH ×2 (09:32→22:30)
[2021-09-24] MEDS: DIGOXIN 0.125 MG TAB PO SCH (09:32)
[2021-09-24 13:10] LABS: Free T4 (Free Thyroxine) 2.11 ng/dL (0.89-1.76)
[2021-09-24 13:11] LABS: T3 Total 1.65 ng/mL (0.60-1.81)
[2021-09-24] MEDS ORDERED: NITR0.4S29 SL (13:28)
[2021-09-24] MEDS ORDERED: DOCU100T15 PO (13:28)
[2021-09-24] MEDS ORDERED: APIX5TAB PO (13:28)
[2021-09-24] MEDS ORDERED: ACET-1158 PO (13:28)
[2021-09-24] MEDS ORDERED: SERT-375 PO (13:28)
[2021-09-24] MEDS ORDERED: FOLI1TAB6 PO (13:28)
[2021-09-24] MEDS ORDERED: MULT-1018 PO (13:28)
[2021-09-24] MEDS ORDERED: BISA10SU45 RE (13:28)
[2021-09-24] MEDS ORDERED: ASPI-543 PO (13:28)
[2021-09-24] MEDS ORDERED: MAGNSUS48 PO (13:28)
[2021-09-24 20:00] VITALS: BP 134/65
[2021-09-24] MEDS: ACETAMINOPHEN 325 MG TAB PO PRN (20:58)
[2021-09-24] MEDS: AMIODARONE HCL 200 MG TAB PO SCH (22:29)
[2021-09-24] MEDS: ATORVASTATIN 20 MG TAB PO SCH (22:30)
[2021-09-24] MEDS: methIMAzole 5 MG TAB PO SCH (22:32)
[2021-09-25] MEDS: ACETAMINOPHEN 325 MG TAB PO PRN (04:13)
[2021-09-25 05:00] VITALS: BP_SYST 144; BP_SYST 165; BP_DIAS 64; BP_DIAS 81
[2021-09-25 08:53] VITALS: BP 142/81
[2021-09-25] MEDS: AMIODARONE HCL 200 MG TAB PO SCH ×2 (09:57→21:34)
[2021-09-25] MEDS: CARVEDILOL 12.5 MG TAB PO SCH ×2 (09:58→21:35)
[2021-09-25] MEDS: APIXABAN 5 MG TAB PO SCH ×2 (09:59→21:35)
[2021-09-25] MEDS: DIGOXIN 0.125 MG TAB PO SCH (09:59)
[2021-09-25] MEDS ORDERED: methIMAzole 5 MG TAB PO SCH (10:00)
[2021-09-25] MEDS: ENALAPRIL MALEATE 10 MG TAB PO SCH (10:00)
[2021-09-25] MEDS: methIMAzole 5 MG TAB PO SCH ×2 (10:00→21:36)
[2021-09-25] MEDS: PANTOPRAZOLE 40 MG TAB PO SCH (10:00)
[2021-09-25] MEDS ORDERED: BACLOFEN 10 MG TAB PO PRN (10:30)
[2021-09-25] MEDS: traMADol HCL 50 MG TAB PO PRN ×2 (11:54→20:33)
[2021-09-25 13:00] VITALS: BP 136/83
[2021-09-25] MEDS ORDERED: ADENOSINE 6 MG/2 ML INJ IV ONE (14:24)
[2021-09-25 16:47] VITALS: BP 139/53
[2021-09-25] MEDS: ATORVASTATIN 20 MG TAB PO SCH (21:35)
[2021-09-25 22:00] VITALS: BP 140/89
[2021-09-26] MEDS: traMADol HCL 50 MG TAB PO PRN ×2 (04:03→13:09)
[2021-09-26 05:00] VITALS: BP 114/63
[2021-09-26 09:00] VITALS: BP 116/67
[2021-09-26] MEDS: DIGOXIN 0.125 MG TAB PO SCH (10:10)
[2021-09-26] MEDS: APIXABAN 5 MG TAB PO SCH (10:10)
[2021-09-26] MEDS: CARVEDILOL 12.5 MG TAB PO SCH (10:10)
[2021-09-26] MEDS: AMIODARONE HCL 200 MG TAB PO SCH (10:10)
[2021-09-26] MEDS: ENALAPRIL MALEATE 10 MG TAB PO SCH (10:11)
[2021-09-26] MEDS: methIMAzole 5 MG TAB PO SCH (10:24)
[2021-09-26 13:00] VITALS: BP 131/72
[2021-09-26 16:45] VITALS: BP 142/77
[2021-09-26 18:40] VITALS: BP 142/77
== END 2021-09-26 19:50 | DRG 281 ==
LOC: EDBD 16:54 → ER 16:54 → TELE 21:23 → TELE-WESTW 09-24 17:14
PROVIDERS: ADMIT Nurse Practitioner; ATTEND Internal Medicine
PROC: 4B02XSZ Measurement of Cardiac Pacemaker, External Approach (ICD-10-PCS; principal; 2021-09-24)
DX: I47.1 Supraventricular tachycardia (principal); I21.A1 Myocardial infarction type 2; E44.0 Moderate protein-calorie malnutrition; E05.90 Thyrotoxicosis, unspecified without thyrotoxic crisis or storm; I47.2 Ventricular tachycardia; R62.7 Adult failure to thrive; E03.9 Hypothyroidism, unspecified; E78.5 Hyperlipidemia, unspecified; I11.0 Hypertensive heart disease with heart failure; I48.91 Unspecified atrial fibrillation; I50.9 Heart failure, unspecified; E66.01 Morbid (severe) obesity due to excess calories; E21.3 Hyperparathyroidism, unspecified; F03.90 Unspecified dementia, unspecified severity, without behavioral disturbance, psychotic disturbance, mood disturbance, and anxiety; M54.50 Low back pain, unspecified; R29.6 Repeated falls; Z20.822 Contact with and (suspected) exposure to COVID-19; H91.90 Unspecified hearing loss, unspecified ear; Z79.01 Long term (current) use of anticoagulants; Z91.14 Patient's other noncompliance with medication regimen; Z95.0 Presence of cardiac pacemaker; Z68.27 Body mass index [BMI] 27.0-27.9, adult; Z79.82 Long term (current) use of aspirin; Z79.899 Other long term (current) drug therapy; Z80.1 Family history of malignant neoplasm of trachea, bronchus and lung; Z82.49 Family history of ischemic heart disease and other diseases of the circulatory system; Z85.118 Personal history of other malignant neoplasm of bronchus and lung
CPT/HCPCS: 36415; 71045; 80053; 83735; 83880; 84439; 84443; 84480; 84484; 85025; 85610; 85730; 87081; 92960; 93005; 96365; 96366; 96375; 99291; G0378; J0153; J7060

== ENCOUNTER 2021-09-30 11:33 | Inpatient (IN) | payer MEDICARE ==
[~2021-09-30] VITALS: Ht 190.5 cm; Wt 113.5 kg
[~2021-09-30 11:33] MED LIST changes: +ACET-1158 PO; -AMIO200T4 PO; +ASPI-543 PO; -ASPI81CH43 PO; -ATOR10TA PO; +BISA10SU45 RE; -CAR125T PO; -CLON0.5T3 PO; -DIGO0.12 PO; +DOCU100T15 PO; -DOX100T PO; -ENAL10TA12 PO; +FOLI1TAB6 PO; -GAB100C PO; -HYDR-4833 PO; +MAGNSUS48 PO; -METH10TA6 PO; +MULT-1018 PO; +NITR0.4S29 SL; +SERT-375 PO; -TRAM50TA2 PO; -WARF1TAB36 PO
[2021-09-30] MEDS ORDERED: METOPROLOL TARTRATE 1MG/1ML-5ML VIAL IV ONE (12:15)
[2021-09-30] MEDS ORDERED: MIDAZOLAM HCL 2MG/2ML 2ml VIAL (1mg/ml) IV ONE (13:00)
[2021-09-30] MEDS ORDERED: SODIUM CHLORIDE 0.9% 2,000 ML IV ONE (13:00)
[2021-09-30 13:04] LABS: Basophils # (auto) 0 10 ^3/uL (0-0.2); Basophils % (auto) 0.6 % (0.0-2.0); Eosinophils # (auto) 0.1 10 ^3/uL (0-0.8); Eosinophils % (auto) 1.5 % (0.0-7.0); Hematocrit 37.4 % (41.0-53.0); Hemoglobin 12.1 g/dL (13.5-17.5); Lymphocytes # (auto) 1.4 10 ^3/uL (0.4-5.4); Lymphocytes % (auto) 22.3 % (10.0-50.0); Mean Corpuscular Hemoglobin 28.6 pg (28.0-32.0); Mean Corpuscular Hgb Conc. 32.3 g/dL (32.0-36.0); Mean Corpuscular Volume 88.7 fL (80.0-100.0); Monocytes # (auto) 0.7 10 ^3/uL (0-1.3); Monocytes % (auto) 10.1 % (0.0-12.0); Neutrophils # (auto) 4.2 10 ^3/uL (1.6-8.6); Neutrophils % (auto) 65.5 % (37.0-80.0); Nucleated Red Blood Cells % 0.1 %; Red Blood Cells 4.22 10^6/uL (4.5-5.90); Red Cell Distribution Width 13.9 % (11.8-14.3); White Blood Cell 6.5 10^3/uL (4.4-10.8)
[2021-09-30] MEDS ORDERED: AMIODARONE HCL 150 MG in D5W 5% 100 ML IV ONE (13:15)
[2021-09-30] MEDS ORDERED: AMIODARONE 450mg/250ml AE 250 ML IV SCH (13:15)
[2021-09-30 13:18] LABS: INR 1.29 (0.9-1.15); Partial Thromboplastin Time 32.8 sec (24.6-33.4)
[2021-09-30 13:19] LABS: Potassium 4.4 mmol/L (3.5-5.1)
[2021-09-30 13:23] LABS: BUN/Creatinine Ratio 14.2; Bilirubin, Total 0.5 mg/dL (0.2-1.0); Total Protein 7.3 g/dL (6.4-8.2)
[2021-09-30] MEDS ORDERED: MORPHINE SULFATE INJ 2 MG/ml SYRG IV PRN (13:45)
[2021-09-30] MEDS ORDERED: ONDANSETRON HCL 4 MG/2 ML VIAL IV PRN (13:45)
[2021-09-30] MEDS ORDERED: ACETAMINOPHEN 500 MG TAB PO PRN (13:45)
[2021-09-30] MEDS ORDERED: DOCUSATE SOD 100 MG CAP PO PRN (13:45)
[2021-09-30] MEDS ORDERED: NITROGLYCERIN 0.4 MG SL TAB SL PRN (13:45)
[2021-09-30] MEDS ORDERED: ACETAMINOPHEN 325 MG TAB PO PRN (13:45)
[2021-09-30] MEDS: SODIUM CHLORIDE 0.9% 1,000 ML IV SCH ×2 (14:52→22:37)
[2021-09-30] MEDS: SODIUM CHLOR 0.9% PF (SALINE LOCK) 10ML VIAL/SYR IV SCH ×2 (14:53→22:20)
[2021-09-30] MEDS: HEPARIN DRIP/D5W 100UNITS/ML 250 ML IV SCH (15:50)
[2021-09-30] MEDS: methIMAzole 5 MG TAB PO SCH (15:51)
[2021-09-30 19:41] LABS: Urine Bacteria FEW /hpf (None Seen); Urine Blood Negative /uL (Negative); Urine Hyaline Cast MANY /lpf (0 - 2); Urine Mucus FEW (None Seen); Urine Specific Gravity 1.021 (1.001-1.035); Urine WBC 3 /hpf (0 - 3)
[2021-09-30] MEDS: METOPROLOL TARTRATE 25 MG TAB PO SCH (22:00)
[2021-09-30] MEDS ORDERED: METOPROLOL TARTRATE 25 MG TAB PO ONE (22:00)
[2021-09-30] MEDS ORDERED: DOCUSATE SOD 100 MG CAP PO SCH (22:00)
[2021-09-30] MEDS ORDERED: APIXABAN 5 MG TAB PO SCH (22:00)
[2021-09-30] MEDS: cefTRIAXone 1GM/50ML D5W 50 ML IV SCH (22:20)
[2021-09-30] MEDS: PHENYLEPHRINE IV 250 ML IV SCH ×2 (22:20→23:02)
[2021-09-30 23:01] LABS: INR 1.28 (0.9-1.15); Partial Thromboplastin Time 35.4 sec (24.6-33.4)
[2021-09-30] MEDS ORDERED: HEPARIN SODIUM (PORCINE) 5000 UNITS/ML 1ML VIAL IV ONE (23:45)
[2021-10-01] MEDS: methIMAzole 5 MG TAB PO SCH ×4 (01:07→21:32)
[2021-10-01] MEDS: SODIUM CHLOR 0.9% PF (SALINE LOCK) 10ML VIAL/SYR IV SCH ×3 (05:50→22:00)
[2021-10-01] MEDS: SODIUM CHLORIDE 0.9% 1,000 ML IV SCH (05:52)
[2021-10-01 06:40] LABS: INR 1.24 (0.9-1.15)
[2021-10-01] MEDS: PHENYLEPHRINE IV 250 ML IV SCH (06:40)
[2021-10-01 06:47] LABS: Partial Thromboplastin Time 88.3 sec (24.6-33.4)
[2021-10-01 08:40] LABS: Basophils # (auto) 0 10 ^3/uL (0-0.2); Basophils % (auto) 0.5 % (0.0-2.0); Eosinophils # (auto) 0.2 10 ^3/uL (0-0.8); Eosinophils % (auto) 2.7 % (0.0-7.0); Hematocrit 36.9 % (41.0-53.0); Hemoglobin 12.2 g/dL (13.5-17.5); Lymphocytes # (auto) 1.5 10 ^3/uL (0.4-5.4); Lymphocytes % (auto) 21.7 % (10.0-50.0); Mean Corpuscular Hemoglobin 29.3 pg (28.0-32.0); Mean Corpuscular Hgb Conc. 33.1 g/dL (32.0-36.0); Mean Corpuscular Volume 88.5 fL (80.0-100.0); Monocytes # (auto) 0.7 10 ^3/uL (0-1.3); Monocytes % (auto) 10.9 % (0.0-12.0); Neutrophils # (auto) 4.4 10 ^3/uL (1.6-8.6); Neutrophils % (auto) 64.2 % (37.0-80.0); Nucleated Red Blood Cells % 0.3 %; Red Blood Cells 4.17 10^6/uL (4.5-5.90); White Blood Cell 6.8 10^3/uL (4.4-10.8)
[2021-10-01 08:55] LABS: Albumin 2.9 g/dL (3.4-5.0); Calcium 8.5 mg/dL (8.5-10.1); Magnesium 1.9 mg/dL (1.6-2.6); Potassium 4.4 mmol/L (3.5-5.1)
[2021-10-01] MEDS: METOPROLOL TARTRATE 25 MG TAB PO SCH ×2 (08:56→09:00)
[2021-10-01 08:58] LABS: BUN/Creatinine Ratio 22.1; Bilirubin, Total 0.4 mg/dL (0.2-1.0); Phosphorus 3.5 mg/dL (2.5-4.90); Total Protein 6.6 g/dL (6.4-8.2)
[2021-10-01] MEDS: cefTRIAXone 1GM/50ML D5W 50 ML IV SCH ×2 (08:58→21:32)
[2021-10-01] MEDS: ASPirin-EC 81 mg tab PO SCH (09:02)
[2021-10-01] MEDS: FOLIC ACID 1 MG TAB PO SCH (09:02)
[2021-10-01] MEDS: MULTIPLE VITAMIN TAB PO SCH (09:02)
[2021-10-01] MEDS: AZITHROMYCIN 500MG/ 250ML 250 ML IV SCH (09:09)
[2021-10-01] MEDS: SERTRALINE HCL 50 MG TAB PO SCH (09:09)
[2021-10-01] MEDS: HYDROcodone-ACET 5/325MG TAB PO PRN (13:43)
[2021-10-01] MEDS: HEPARIN DRIP/D5W 100UNITS/ML 250 ML IV SCH (14:12)
[2021-10-01 14:34] LABS: INR 1.22 (0.9-1.15); Partial Thromboplastin Time 42.4 sec (24.6-33.4)
[2021-10-01 17:00] VITALS: BP 115/64
[2021-10-01] MEDS: HYDROmorphone HCL 2 MG/ML VL/or syr IV PRN (21:45)
[2021-10-01 22:00] VITALS: BP 125/84
[2021-10-01 22:59] LABS: INR 1.26 (0.9-1.15); Partial Thromboplastin Time 43.6 sec (24.6-33.4)
[2021-10-02] VITALS (9 sets, daily range): BP systolic 107–155; BP diastolic 71–92
[2021-10-02] MEDS ORDERED: dilTIAZem 25 MG/5 ML VIAL IV ONE (02:45)
[2021-10-02] MEDS: HYDROmorphone HCL 2 MG/ML VL/or syr IV PRN ×2 (03:05→17:08)
[2021-10-02] MEDS ORDERED: dilTIAZem HCL 50 MG/10 ML VIAL IV ONE (03:29)
[2021-10-02] MEDS ORDERED: AMIODARONE 450mg/250ml AE 250 ML IV ONE ×2 (04:45→04:48)
[2021-10-02] MEDS ORDERED: AMIODARONE HCL 150 MG in D5W 5% 100 ML IV ONE (04:45)
[2021-10-02] MEDS: methIMAzole 5 MG TAB PO SCH ×3 (05:59→21:09)
[2021-10-02] MEDS: SODIUM CHLOR 0.9% PF (SALINE LOCK) 10ML VIAL/SYR IV SCH ×3 (06:00→21:58)
[2021-10-02] MEDS ORDERED: METOPROLOL TARTRATE 1MG/1ML-5ML VIAL IV ONE (08:19)
[2021-10-02] MEDS: METOPROLOL TARTRATE 1MG/1ML-5ML VIAL IV SCH ×5 (08:42→11:35)
[2021-10-02] MEDS ORDERED: FAMOTIDINE 20 MG TAB PO SCH (10:00)
[2021-10-02 10:02] LABS: INR 1.16 (0.9-1.15); Partial Thromboplastin Time 66.5 sec (24.6-33.4)
[2021-10-02] MEDS: ASPirin-EC 81 mg tab PO SCH (10:22)
[2021-10-02] MEDS: FOLIC ACID 1 MG TAB PO SCH (10:22)
[2021-10-02] MEDS: MULTIPLE VITAMIN TAB PO SCH (10:22)
[2021-10-02] MEDS: HYDROcodone-ACET 5/325MG TAB PO PRN ×2 (10:23→21:09)
[2021-10-02] MEDS: SERTRALINE HCL 50 MG TAB PO SCH (10:25)
[2021-10-02] MEDS: cefTRIAXone 1GM/50ML D5W 50 ML IV SCH ×2 (10:26→21:09)
[2021-10-02] MEDS: AZITHROMYCIN 500MG/ 250ML 250 ML IV SCH (12:34)
[2021-10-02] MEDS: HEPARIN DRIP/D5W 100UNITS/ML 250 ML IV SCH (12:37)
[2021-10-02 16:04] LABS: INR 1.21 (0.9-1.15); Partial Thromboplastin Time 49.5 sec (24.6-33.4)
[2021-10-02] MEDS: METOPROLOL TARTRATE 1MG/1ML-5ML VIAL IV PRN ×2 (18:47→21:05)
[2021-10-02] MEDS ORDERED: SODIUM CHLORIDE 0.9% 1,000 ML IV SCH (20:30)
[2021-10-02] MEDS ORDERED: METOPROLOL TARTRATE 25 MG TAB PO SCH (22:00)
[2021-10-03] MEDS: METOPROLOL TARTRATE 1MG/1ML-5ML VIAL IV PRN ×2 (00:29→04:05)
[2021-10-03] MEDS: HYDROcodone-ACET 5/325MG TAB PO PRN (01:43)
[2021-10-03] MEDS: HEPARIN DRIP/D5W 100UNITS/ML 250 ML IV SCH (01:46)
[2021-10-03 01:52] LABS: INR 1.25 (0.9-1.15); Partial Thromboplastin Time 69.1 sec (24.6-33.4)
[2021-10-03 04:36] VITALS: BP 114/70
== END 2021-10-03 05:00 | disposition short-term general hospital (02) | DRG 280 ==
LOC: EDBD 11:33 → ER 11:33 → TELE 13:58 → TELE-EAST 10-01 09:35
PROVIDERS: ADMIT Internal Medicine; ATTEND Internal Medicine
PROC: 5A2204Z Restoration of Cardiac Rhythm, Single (ICD-10-PCS; principal; 2021-09-30)
DX: I47.2 Ventricular tachycardia (principal); I21.A1 Myocardial infarction type 2; N17.0 Acute kidney failure with tubular necrosis; I13.0 Hypertensive heart and chronic kidney disease with heart failure and stage 1 through stage 4 chronic kidney disease, or unspecified chronic kidney disease; E87.1 Hypo-osmolality and hyponatremia; I50.22 Chronic systolic (congestive) heart failure; I42.9 Cardiomyopathy, unspecified; I48.92 Unspecified atrial flutter; I48.91 Unspecified atrial fibrillation; E05.90 Thyrotoxicosis, unspecified without thyrotoxic crisis or storm; E78.5 Hyperlipidemia, unspecified; N18.2 Chronic kidney disease, stage 2 (mild); E03.9 Hypothyroidism, unspecified; I95.9 Hypotension, unspecified; Z95.810 Presence of automatic (implantable) cardiac defibrillator; R62.7 Adult failure to thrive; M54.50 Low back pain, unspecified; R29.6 Repeated falls; Z20.822 Contact with and (suspected) exposure to COVID-19; E66.01 Morbid (severe) obesity due to excess calories; F03.90 Unspecified dementia, unspecified severity, without behavioral disturbance, psychotic disturbance, mood disturbance, and anxiety; H91.90 Unspecified hearing loss, unspecified ear; Z68.31 Body mass index [BMI] 31.0-31.9, adult; Z80.1 Family history of malignant neoplasm of trachea, bronchus and lung; Z79.01 Long term (current) use of anticoagulants; Z79.82 Long term (current) use of aspirin; Z79.899 Other long term (current) drug therapy; Z82.49 Family history of ischemic heart disease and other diseases of the circulatory system
CPT/HCPCS: 36415; 71045; 80053; 81001; 83735; 83880; 84100; 84443; 84484; 85025; 85610; 85730; 93005; 93306; 96361; 96374; 99291; G0378; J0696; J2250; J7060